=== PATIENT | male | born 1940 | race Caucasian/White ===

== ENCOUNTER 2019-08-21 14:26 | Inpatient (IN) | payer MEDICARE, MEDICAID, SELFPAY ==
[2019-08-21] VITALS (10 sets, daily range): BP systolic 83–139; BP diastolic 46–66; PULSE 71–95; RESP 14–28; TEMP 35.4–36.7; O2SAT 97–100; BMI 23.7
--- NOTE | ~2019-08-21 | CT_ITS ---
EXAMINATION: CT brain wo con DATE: 08/21/2019 16:02 INDICATION: Altered mental status. TECHNIQUE: Computed tomography (CT) of the head was performed without intravenous contrast. The mA wa s adjusted according to patient size. Iterative reconstruction technique was employed. The dose-lengt h product was 605.33 mGy-cm. COMPARISON: None FINDINGS: There are scattered areas of low attenuation in the cerebral white matter and deep james nuc lei. There is an old infarct in right frontoparietal region. There are old infarcts in the bilateral basal ganglia and left frontal lobe gamboa radiata. There is an old infarct in right cerebellum. Ther e are old infarcts in the bilateral parietal lobes. There is no intracranial hemorrhage, acute infarc tion, or abnormal intracranial mass lesion. The ventricles are normal in size. There is mild mucosal thickening in right maxillary sinus. The mastoid air cells are normal. There are likely changes of oc ular lens replacement surgeries. IMPRESSION: 1. Multiple old infarcts in the brain. 2. Moderate nonspecific cerebral white matter disease and disease of the deep james nuclei, which like ly represents chronic small vessel ischemic disease. Reviewed, dictated and finalized at location A. IMPRESSION: 1. Multiple old infarcts in the brain. 2. Moderate nonspecific cerebral white matter disease and disease of the deep g ray nuclei, which likely represents chronic small vessel ischemic disease.
--- NOTE | ~2019-08-21 | US_ITS ---
EXAMINATION: US renal BI DATE: 08/22/2019 13:11 INDICATION: Acute kidney injury TECHNIQUE: Multiple grayscale and Doppler ultrasound images of the kidneys were obtained. COMPARISON: None. FINDINGS: The right kidney measures 8.7 x 4.9 x 4.9 cm. The left kidney measures 9.5 x 5.5 x 4.0 cm. The kidneys demonstrate normal parenchymal echogenicity. There is no hydronephrosis. The bladder is d ecompressed by a Carver catheter. IMPRESSION: 1. Normal kidneys without hydronephrosis. Reviewed, dictated and finalized at location B.
--- NOTE | ~2019-08-21 | US_ITS ---
EXAMINATION: US right upper quadrant DATE: 08/22/2019 13:12 INDICATION: Right upper quadrant pain TECHNIQUE: Multiple grayscale and Doppler ultrasound images of the abdomen were obtained. COMPARISON: None available FINDINGS: Bowel gas obscures visualization of the pancreas. The visualized portions of the pancreas a re unremarkable. The liver is normal with normal echogenicity and echotexture. No surface nodularity. Normal hepatopetal flow in the main portal vein. There are stones and sludge in the gallbladder. No gallbladder wall thickening or pericholecystic fluid are identified. The normal common bile duct familia ures 5 mm. There was no sonographic Woodward sign. IMPRESSION: 1. Gallbladder sludge and cholelithiasis without additional findings of cholecystitis. Reviewed, dictated and finalized at location B. IMPRESSION: 1. Gallbladder sludge and cholelithiasis without additional findings of cholecy stitis.
--- NOTE | ~2019-08-21 | XR_ITS ---
EXAMINATION: XR chest 1V DATE: 08/21/2019 16:08 INDICATION: Altered mental status. TECHNIQUE: A single frontal view of the chest was obtained. COMPARISON: None. FINDINGS: There is mild scarring at the lung apices. No pleural effusion or pneumothorax. The heart s ize is normal. There are prominent paracardial fat pads. IMPRESSION: 1. Mild scarring at the lung apices. Reviewed, dictated and finalized at location A.
--- NOTE | 2019-08-21 14:48 | PC.NURSE ---
This RN called [facility]. They state his haywood was last changed on 08/08/19. I asked when haywood care was last given. She states he should have haywood care every day. I told her based on the appearance of his penis and haywood he has not had care in a while. They also state he had the bruises on his knees at his admission on 08/07
--- NOTE | 2019-08-21 14:56 | ED.AMS ---
HPI - Altered Mental Status General Chief Complaint: Altered Mental Status Stated Complaint: AMS Time Seen by Provider: 08/21/19 14:30 Source: EMS, RN notes reviewed, old records reviewed and other (PCP, [facility] notes) Mode of arrival: EMS Limitations: altered mental status History of Present Illness HPI narrative: Pt is 79 y/o male, with a H/O a CVA, who presents to the ED, via EMS, from [facility] with c/o AMS. Per EMS, they were called to the [facility] d/t the pt having increased AMS. Pt is normally non-verbal, but he has been more lethargic. Per ED nurse, pt had a Carver Catheter that was placed by [facility] staff on 08/09/19 that showed skin breakdown to the tip of his penis with minimal urine output in the Carver bag. Pt was admitted to the [facility] on 08/08/19. Per [facility] records, pt is taking Eliquis and Oxycodone. Per records, pt is supposed to be getting a G-tube placed. A complete HPI is limited d/t pt's AMS. MD complaint: altered mental status Onset (ago): unknown Related Data Allergies Allergy/AdvReac Type Severity Reaction Status Date / Time aspirin Allergy Unknown Verified 08/21/19 15:18 latex Allergy Unknown Verified 08/21/19 15:19 Review of Systems Review of Systems: ROS unobtainable: unobtainable due to mental status PMFSH Past Medical History Medical History (Updated 08/21/19 @ 18:03 by Vik Rausch MD) Aphasia Bipolar 1 disorder CVA (cerebral vascular accident) Recent left MCA stroke with resultant aphasia, dysphagia, and hemiplegia. Dementia Hypertension Idiopathic peripheral neuropathy Insomnia PTSD (post-traumatic stress disorder) Secondary polycythemia Urinary retention : With indwelling Carver catheter. Surgical History Surgical History (Updated 08/21/19 @ 15:22 by Neli Olmos) No significant past surgical history Social History Social History (Updated 08/21/19 @ 17:44 by Lizabeth Justin PA-C) Social History: The patient lives in [place] with his . He is currently at [facility] since his recent stroke. He is retired from the [employer]. He has a history of alcohol abuse his , Liana, is his healthcare power of consumer attorney and he is listed as a full code. Exam Const: General: no acute distress and well developed Orientation/consciousness: Other orientation findings (nonverbal, does not follow commands) Limitations: no limitations HENMT: Head: normocephalic and atraumatic Ears: external ears normal General nose exam: No nasal discharge present and no epistaxis Face and sinus: face symmetric Mouth: Yes lip normal, Yes tongue normal and Yes dry mucous membranes Eyes: Conjunctivae: conjunctivae normal Sclera: sclerae normal Resp: Effort & Inspection: normal respiratory effort Auscultation: clear to auscultation bilaterally, no rales, no rhonchi, no wheezes and other (breath sounds equal) Cardio: Rate: regular rate Rhythm: regular rhythm Heart sounds: no gallops and no murmurs GI: Inspection: non-distended GI Palp: Yes Soft to palpation Auscultation: other (bowel sounds present) Urinary Catheter: Urinary Catheter: other (skin breakdown by meatus per nurse report) Back/Spine/Pelvis: Thoracic/Lumbar Spine: thoracic and lumbar spine normal to inspection Skin: General skin exam: normal color and no rashes or lesions noted Neuro: General: other (does not follow commands) Cranial nerves: Yes facial symmetry Speech: Other speech findings present (Neuro) (nonverbal) Extrem: General: no pedal edema and other (bruising to YANCI knees) Course Consultations Consultation #1: Discussed case with Dr. Harris, pt's PCP at the [facility]. She was able to find out that he was sent to [facility] from the rehab institute of [facility] but unaware of how long he was in the rehab institute. She states that the pt was supposed to be evaluated for a G-tube placement d/t the pt having trouble swallowing. BP's improved w/hydration covered for sepsis/infxm though more likely is profou
--- NOTE | 2019-08-21 15:35 | ECG_ITS ---
Measurements Intervals [place] Rate: 92 P: 69 MT: 122 QRS: 25 QRSD: 89 T: 78 QT: 353 QTc: 437 Interpretive Statements SINUS RHYTHM DELAYED PRECORDIAL R/S TRANSITION BORDERLINE ST-T WAVE ABNORMALITY- LATERAL LEADS BORDERLINE ECG Electronically Signed On 08-21-2019 16:08:26 CDT by Jian Rivas D.O.
[2019-08-21 15:39] LABS: Basophils Percent Auto 0.2 % (0.2-1.2); Hematocrit 64.9 % (42.0-52.0); Hemoglobin 20.1 g/dL (14.0-18.0); Immature Granulocyte Absolute 0.09 K/mm3 (0.00-0.031); Immature Granulocyte Percent A 0.5 % (0-0.5); Lymphocytes Absolute Auto 0.49 K/mm3 (0.9-3.2); Lymphocytes Percent Auto 2.7 % (18.3-44.2); Mean Corpuscular Volume 106.6 fl (80-100); Mean Platelet Volume 12.6 fl (7.4-10.4); Monocytes Absolute Auto 0.7 K/mm3 (0.1-0.6); Monocytes Percent Auto 3.6 % (2.6-8.5); Neutrophils Absolute Auto 16.8 K/mm3 (1.3-6.7); Platelet Count Result 220 k/mm3 (150-375); Red Blood Count 6.09 M/mm3 (4.6-6.20); Red Cell Distribution Width 15.4 % (11.5-14.5); White Blood Count 18.1 K/mm3 (4.5-10.0)
[2019-08-21] MEDS: LACTATED RINGERS 1,000 ML 999 ML IV CONT ×3 (15:42→16:58)
--- NOTE | 2019-08-21 15:43 | PC.NURSE ---
Pt. IV access attempted by multiple RNs with no success, IV Ultrasound RN notified to come start IV access for Pt.
[2019-08-21 15:47] LABS: Glucose Point of Care 145 (65-105)
[2019-08-21 16:01] LABS: Alanine Aminotransferase 73 U/L (4-50); Albumin Level 4.5 g/dL (3.5-5.1); Alkaline Phosphatase 150 U/L (38-126); Aspartate Amino Transferase 103 U/L (17-59); Bilirubin,Total 0.8 mg/dL (0.2-1.3); Calcium 9.7 mg/dL (8.4-10.2); Carbon Dioxide 19 mmol/L (22-30); Chloride 130 mmol/L (98-107); Glucose 158 mg/dL (75-110); Potassium 5.3 mmol/L (3.4-5.0); Sodium 168 mmol/L (137-145)
[2019-08-21 16:02] LABS: Lactic Acid Reflex 4.5 mmol/L (0.7-2.1)
[2019-08-21 16:44] LABS: Blood Urea Nitrogen 193 mg/dL (9-20)
[2019-08-21 16:45] LABS: Estimated Glomerular Filt Rate 11
--- NOTE | 2019-08-21 18:06 | ADMGEN ---
This patient, Eric De La Rosa, was admitted to IMU Room 202-01. Patient/family oriented to hospital policies and general routines including ID bracelet, bed and alarms, visiting hours, pain management, procedures, bathroom and other care routines, personal items, smoking policy, room service/diet, and visiting hours. Valuables list has been completed. Information on how to activate the Rapid Response Team has been discussed. Patient/Family are encouraged to report perceived risks to care and to ask questions if they do not understand what they are told or what they should do.
[2019-08-21 18:19] LABS: Add Urine Microscopic? YES; Appearance Urine Cloudy (Clear); Bilirubin Urine Negative (Negative); Blood Urine 3+ (Negative); Color Urine Yellow (Yellow); Glucose Urine UA Negative (Negative); Hyaline Casts Urine 15-19 /lpf; Ketones Urine Negative (Negative); Leukocyte Esterase Ur 2+ LEU/UL (Negative); Mucus Urine Few /lpf; Nitrate Urine Negative (Negative); Protein Urine 2+ mg/dL (Negative); RBC Urine >75 /hpf (0-2); Specific Grav Ur 1.015 (1.001-1.035); Squamous Epithelial Cell Urine Rare /hpf (Few); Urobilinogen Urine Negative mg/dL (<2.0); WBC Urine >75 /hpf
[2019-08-21 18:33] LABS: Base Excess ABG -4.2 mEq/l (+/-2.0); Carboxyhemoglobin 0.3 % THb (0-2.0); Fractional Inspired Oxygen 21 %; HCO3 ABG 19.5 mEq/l (22.0-26.0); Methemoglobin ABG 0.6 %THb (0-1.5); Oxygen Content ABG 23.2 %vol (16.0-22.0); Oxyhemoglobin 94.2 % THb (90.0-100.0); PCO2 ABG 32.5 mmHg (35.0-45.0); PO2 ABG 80.8 mmHg (80.0-100.0); PO2 FiO2 Ratio Arterial Blood 3.85 %; Reduced Hemoglobin 4.9 %THb (0-5.0); Site Drawn RIGHT RADIAL; Total Hemoglobin 17.5 g/dL (12.0-18.0); pH ABG 7.395 (7.350-7.450)
[2019-08-21] MEDS: LACTATED RINGERS 1,000 ML 200 ML IV CONT (18:33)
[2019-08-21 18:34] LABS: Device ROOM AIR; Modified Allen's Test Pass
[2019-08-21 18:37] LABS: Reflex Lactic Acid Yes or No Add Lactic
--- NOTE | 2019-08-21 19:30 | PM.IMHP ---
H&P: HPI History of Present Illness Chief complaint: Altered mental status. Narrative: Eric De La Rosa is an unfortunate 79-year-old male with recent CVA with resultant hemiplegia, aphasia, and dysphagia who presented to the emergency department earlier today from [facility] for evaluation of altered mental status. Given his aphasia and confusion, he is unable to provide a reliable history. As such, a majority of this medical history is obtained via a review of his electronic medical records. He had never been seen at this facility before prior to today, and appears that he lives in [place]. He was admitted to [facility] on August 08, 2019 after being hospitalized at [facility] with left MCA stroke. Reportedly today he was more ?lethargic? than usual and was brought in for evaluation. On arrival to the emergency department he was hypotensive and was found to be in acute renal failure with profound dehydration. At the time my evaluation he is unresponsive. He will open his eyes but does not track and will not follow commands nor answer questions. I have a call out to the patient's for further information, and records have been requested from [facility] for review. Review of Systems Review of Systems: Narrative: Unobtainable due to current clinical condition as detailed above. [facility] Past Medical History Medical History (Updated 08/21/19 @ 21:01 by Lizabeth Justin PA-C) Aphasia Bipolar 1 disorder CVA (cerebral vascular accident) Recent left MCA stroke with resultant aphasia, dysphagia, and hemiplegia. Dementia Hypertension Idiopathic peripheral neuropathy Insomnia PTSD (post-traumatic stress disorder) Secondary polycythemia Urinary retention With indwelling Carver catheter. Surgical History Surgical History (Updated 08/21/19 @ 20:41 by Lizabeth Justin PA-C) History of cataract removal with insertion of prosthetic lens Social History Social History (Updated 08/21/19 @ 17:44 by Lizabeth Justin PA-C) Social History: The patient lives in [place] with his . He is currently at [facility] since his recent stroke. He is retired from the railroad. He has a history of alcohol abuse his , Liana, is his healthcare power of strand forming machine operator and he is listed as a full code. Smoking status: Former smoker Alcohol intake: unknown Substance use: unknown Gender identity (if verbalized by the patient): Male Spiritual care concerns: No Agree to blood products: Yes Meds Home Medications and Allergies Home Medications Medication Instructions Recorded Confirmed Type acetaminophen 650 mg PO TID PRN 08/21/19 08/21/19 History apixaban [Eliquis] 5 mg PO BID 08/21/19 08/21/19 History atorvastatin 40 mg PO DAILY 08/21/19 08/21/19 History bisacodyl 10 mg PO HS 08/21/19 08/21/19 History bisacodyl 10 mg DE DAILY PRN 08/21/19 08/21/19 History clopidogrel 75 mg PO DAILY 08/21/19 08/21/19 History hydroxyzine HCl 25 mg PO TID PRN 08/21/19 08/21/19 History latanoprost 1 drp OPHTHALMIC (EYE) HS 08/21/19 08/21/19 History nystatin 5 ml PO QID 08/21/19 08/21/19 History oseltamivir 75 mg PO DAILY 08/21/19 08/21/19 History oxycodone 5 mg PO Q6H PRN 08/21/19 08/21/19 History polyethylene glycol 3350 [Miralax] 17 g PO DAILY 08/21/19 08/21/19 History sennosides-docusate sodium [Senna 2 tablet PO BID 08/21/19 08/21/19 History with Docusate Sodium] thiamine HCl (vitamin B1) 100 mg PO DAILY 08/21/19 08/21/19 History trazodone 50 mg PO HS 08/21/19 08/21/19 History Allergies Allergy/AdvReac Type Severity Reaction Status Date / Time aspirin Allergy Unknown Verified 08/21/19 15:18 latex Allergy Unknown Verified 08/21/19 15:19 Vital Signs Vital Signs - 24 hr 08/21/19 14:29 08/21/19 14:30 08/21/19 15:43 Temperature 95.8 F L 98.1 F Pulse Rate 95 88 Respiratory Rate 28 H 26 H 28 H Blood Pressure 83/66 L 89/59 L Pulse Oximetry 99 99 97
[2019-08-21 19:42] LABS: Hematocrit 55.1 % (42.0-52.0)
[2019-08-21 19:56] LABS: Lactic Acid 2.1 mmol/L (0.7-2.1); Magnesium 3.9 mg/dL (1.6-2.3); Phosphorus 6.8 mg/dL (2.5-4.5)
[2019-08-21 20:02] LABS: Calcium 8.4 mg/dL (8.4-10.2); Carbon Dioxide 23 mmol/L (22-30); Chloride 128 mmol/L (98-107); Creatine Kinase 1529 U/L (55-170); Estimated CRCL calculation 13 ml/min; Estimated Glomerular Filt Rate 15; Glucose 132 mg/dL (75-110); INR 4.5; Partial Thromboplastin Time 35.4 SECONDS (22.3-36.8); Potassium 4.7 mmol/L (3.4-5.0); Prothrombin Time 41.9 Seconds (11.1-14.7); Sodium 162 mmol/L (137-145)
[2019-08-21 20:09] LABS: Blood Urea Nitrogen 168 mg/dL (9-20)
[2019-08-21 20:27] LABS: Hepatitis B Surface Antigen Negative (Negative)
[2019-08-21 20:33] LABS: HAV RESULT Negative (Negative); Hepatitis B Core IgM Result Negative (Negative)
[2019-08-21 20:45] LABS: Hepatitis C Virus Antibody Negative (Negative)
[2019-08-21 20:48] LABS: Thyroid Stimulating Hormone Reflex 0.569 uIU/mL (0.465-4.68)
[2019-08-21 21:01] LABS: Folic Acid 12.3 ng/mL (2.76->20)
[2019-08-21] MEDS: NYSTATIN 100,000 UNITS/ML SUSP 5 ML ORAL.SUSP PO (22:56)
[2019-08-21] MEDS: LATANOPROST 0.005% OP SOLN 2.5 ML BTL 1 DROP EACH EYE (22:57)
[2019-08-21] MEDS: SODIUM CHLORIDE 0.9% IV 1,000 ML 100 ML IV CONT (23:00)
[2019-08-22] VITALS (15 sets, daily range): BP systolic 101–127; BP diastolic 42–61; PULSE 70–88; RESP 18–20; TEMP 36.6–37.2; O2SAT 97–98
[2019-08-22 01:10] LABS: Sodium 160 mmol/L (137-145)
[2019-08-22 05:34] LABS: Basophils Percent Auto 0.1 % (0.2-1.2); Eosinophils Percent Auto 0.1 % (0-4.4); Hematocrit 54.2 % (42.0-52.0); Hemoglobin 16.9 g/dL (14.0-18.0); Immature Granulocyte Absolute 0.34 K/mm3 (0.00-0.031); Immature Platelet Fraction Pct 5.3 % (0.9-11.2); Lymphocytes Percent Auto 5.2 % (18.3-44.2); Mean Corpuscular HGB Conc 31.2 g/dl (32-36); Mean Corpuscular Hemoglobin 33.2 pg (26-34); Mean Corpuscular Volume 106.5 fl (80-100); Mean Platelet Volume 13.1 fl (7.4-10.4); Monocytes Absolute Auto 1.1 K/mm3 (0.1-0.6); Monocytes Percent Auto 6.1 % (2.6-8.5); Neutrophils Absolute Auto 15.1 K/mm3 (1.3-6.7); Neutrophils Percent Auto 86.5 % (45.5-73.1); Platelet Count Result 152 k/mm3 (150-375); Red Blood Count 5.09 M/mm3 (4.6-6.20); Red Cell Distribution Width 15.2 % (11.5-14.5); White Blood Count 17.4 K/mm3 (4.5-10.0)
[2019-08-22 05:40] LABS: INR 4.6; Prothrombin Time 42.6 Seconds (11.1-14.7)
[2019-08-22 05:56] LABS: Alanine Aminotransferase 54 U/L (4-50); Albumin Level 3.2 g/dL (3.5-5.1); Alkaline Phosphatase 106 U/L (38-126); Aspartate Amino Transferase 87 U/L (17-59); Bilirubin,Total 0.5 mg/dL (0.2-1.3); Blood Urea Nitrogen > 120 mg/dL (9-20); Calcium 8.5 mg/dL (8.4-10.2); Carbon Dioxide 22 mmol/L (22-30); Chloride 133 mmol/L (98-107); Estimated CRCL calculation 17 ml/min; Estimated Glomerular Filt Rate 21; Glucose 138 mg/dL (75-110); Potassium 4.5 mmol/L (3.4-5.0); Sodium 161 mmol/L (137-145)
[2019-08-22] MEDS: SODIUM CHLORIDE 0.45% 1,000 ML 100 ML IV CONT ×2 (08:30→23:37)
[2019-08-22] MEDS: NYSTATIN 100,000 UNITS/ML SUSP 5 ML ORAL.SUSP PO ×4 (09:26→20:25)
[2019-08-22 10:43] LABS: Sodium 160 mmol/L (137-145)
--- NOTE | 2019-08-22 12:37 | P.PNIM_ITS ---
Progress Note: A&P Assessment and Plan (1) Metabolic encephalopathy: Code(s): G93.41 - Metabolic encephalopathy Status: Acute Assessment and Plan: * Secondary to acute kidney injury, electrolyte abnormalities, and profound uremia. * Cannot rule out underlying infection, UA pending at this time. * Patient is NPO. Will need to discuss with regarding possible G-tube placement. Once has improved metabolically (2) Dehydration: Code(s): E86.0 - Dehydration Status: Acute Assessment and Plan: * Patient is profoundly dehydrated with a sodium level of 168, BUN 193, and a creatinine of 5.60. * Also significantly hemoconcentrated with a hemoglobin and hematocrit of 21.9 and 64.9% respectively. * He is receiving aggressive IV fluid rehydration with close monitoring of his electrolytes and renal function. * And change to half-normal saline with hypernatremia and hyperchhoremia (3) Lactic acidosis: Code(s): E87.2 - Acidosis Status: Acute Assessment and Plan: * Lactic acid may very well be elevated due to hypoperfusion from significant hypovolemia. * Will obtain blood cultures and urine cultures pending * He recieved 30 milligrams/kilogram IV fluid rehydration, and repeat lactic acid normal (4) Hypotension: Code(s): I95.9 - Hypotension, unspecified Status: Acute Assessment and Plan: * Likely due to profound dehydration. * Blood pressures have improved with IV fluids. * Will hold antihypertensives and monitor blood pressures closely. (5) Hypernatremia: Code(s): E87.0 - Hyperosmolality and hypernatremia Status: Acute Assessment and Plan: * Profound hypernatremia with a sodium of 168 on arrival to the emergency department. * He he received IV fluid boluses for lactic acidosis, we will repeat sodium this evening. * Sodium level will be monitored q.3 hours to ensure it is correcting at an appropriate level. * Na 160 this am , upper limit of correction per day (6) Transaminasemia: Code(s): R74.0 - Nonspecific elevation of levels of transaminase and lactic acid dehydrogenase [LDH] Status: Acute Assessment and Plan: * Possibly due to hypoperfusion, but will ask for records to see if he has a history of elevated LFTs. * Hepatitis panel negative and CK levels increased. Follow both * Right upper quadrant ultrasound today * Continue to monitor closely. (7) Acute kidney injury: Code(s): N17.9 - Acute kidney failure, unspecified Status: Acute Assessment and Plan: * Most likely due to profound dehydration. * I will review his home medications to see if they may be playing a role as well. * As above, he is receiving aggressive IV fluid rehydration. * Carver catheter in place to monitor strict I/O. * Avoid nephrotoxic agents. * Renal ultrasound in a.m. * Nephrology consult if no improvement with above. (8) Secondary polycythemia: Code(s): D75.1 - Secondary polycythemia Status: Acute Assessment and Plan: * This diagnosis was documented on paperwork that accompanied him from [facility], and I have no further information. * At this time he is significantly hemoconcentrated with hemoglobin and hematocrit as above. * Will monitor closely while hydrating, and consider therapeutic phlebotomy if needed, when blood pressure improves. (9) Coagulopathy: Code(s): D68.9 - Coagulation defect,
--- NOTE | 2019-08-22 12:37 | PM.IMPN ---
Progress Note: A&P Assessment and Plan (1) Metabolic encephalopathy: Code(s): G93.41 - Metabolic encephalopathy Status: Acute Assessment and Plan: Secondary to acute kidney injury, electrolyte abnormalities, and profound uremia. Cannot rule out underlying infection, UA pending at this time. Patient is NPO. Will need to discuss with regarding possible G-tube placement. Once has improved metabolically (2) Dehydration: Code(s): E86.0 - Dehydration Status: Acute Assessment and Plan: Patient is profoundly dehydrated with a sodium level of 168, BUN 193, and a creatinine of 5.60. Also significantly hemoconcentrated with a hemoglobin and hematocrit of 21.9 and 64.9% respectively. He is receiving aggressive IV fluid rehydration with close monitoring of his electrolytes and renal function. And change to half-normal saline with hypernatremia and hyperchhoremia (3) Lactic acidosis: Code(s): E87.2 - Acidosis Status: Acute Assessment and Plan: Lactic acid may very well be elevated due to hypoperfusion from significant hypovolemia. Will obtain blood cultures and urine cultures pending He recieved 30 milligrams/kilogram IV fluid rehydration, and repeat lactic acid normal (4) Hypotension: Code(s): I95.9 - Hypotension, unspecified Status: Acute Assessment and Plan: Likely due to profound dehydration. Blood pressures have improved with IV fluids. Will hold antihypertensives and monitor blood pressures closely. (5) Hypernatremia: Code(s): E87.0 - Hyperosmolality and hypernatremia Status: Acute Assessment and Plan: Profound hypernatremia with a sodium of 168 on arrival to the emergency department. He he received IV fluid boluses for lactic acidosis, we will repeat sodium this evening. Sodium level will be monitored q.3 hours to ensure it is correcting at an appropriate level. Na 160 this am , upper limit of correction per day (6) Transaminasemia: Code(s): R74.0 - Nonspecific elevation of levels of transaminase and lactic acid dehydrogenase [LDH] Status: Acute Assessment and Plan: Possibly due to hypoperfusion, but will ask for records to see if he has a history of elevated LFTs. Hepatitis panel negative and CK levels increased. Follow both Right upper quadrant ultrasound today Continue to monitor closely. (7) Acute kidney injury: Code(s): N17.9 - Acute kidney failure, unspecified Status: Acute Assessment and Plan: Most likely due to profound dehydration. I will review his home medications to see if they may be playing a role as well. As above, he is receiving aggressive IV fluid rehydration. Carver catheter in place to monitor strict I/O. Avoid nephrotoxic agents. Renal ultrasound in a.m. Nephrology consult if no improvement with above. (8) Secondary polycythemia: Code(s): D75.1 - Secondary polycythemia Status: Acute Assessment and Plan: This diagnosis was documented on paperwork that accompanied him from [facility], and I have no further information. At this time he is significantly hemoconcentrated with hemoglobin and hematocrit as above. Will monitor closely while hydrating, and consider therapeutic phlebotomy if needed, when blood pressure improves. (9) Coagulopathy: Code(s): D68.9 - Coagulation defect, unspecified Status: Acute Assessment and Plan: He is on apixaban, which is being held. Will continue to monitor INR. (10) Recent cerebrovascular accident (CVA): Code(s): Z86.73 - Personal history of transient ischemic attack (TIA), and cerebral infarction without residual deficits Status: Acute Assessment and Plan: Recent CVA, left MCA, with right hemiplegia, aphasia, and dysphagia. All medications are on hold as he is NPO given altered mental status. Will ho
[2019-08-22 14:12] LABS: Sodium 162 mmol/L (137-145)
[2019-08-22 18:10] LABS: Albumin Level 3.2 g/dL (3.5-5.1); Carbon Dioxide 22 mmol/L (22-30); Chloride 136 mmol/L (98-107); Estimated CRCL calculation 18 ml/min; Estimated Glomerular Filt Rate 23; Glucose 113 mg/dL (75-110); Phosphorus 4.9 mg/dL (2.5-4.5); Potassium 4.9 mmol/L (3.4-5.0); Sodium 164 mmol/L (137-145)
[2019-08-22 18:20] LABS: Blood Urea Nitrogen 152 mg/dL (9-20)
[2019-08-22] MEDS: LATANOPROST 0.005% OP SOLN 2.5 ML BTL 1 DROP EACH EYE (20:29)
[2019-08-22 21:27] LABS: Sodium 165 mmol/L (137-145)
[2019-08-22 21:44] LABS: Creatine Kinase 4150 U/L (55-170)
[2019-08-23] VITALS (15 sets, daily range): BP systolic 114–154; BP diastolic 47–69; PULSE 67–88; RESP 18–24; TEMP 36.6–36.8; O2SAT 95–98
[2019-08-23 05:10] LABS: INR 4.9; Prothrombin Time 44.9 Seconds (11.1-14.7)
[2019-08-23 05:13] LABS: Basophils Percent Auto 0.1 % (0.2-1.2); Eosinophils Percent Auto 0.3 % (0-4.4); Hematocrit 49.1 % (42.0-52.0); Immature Granulocyte Absolute 0.09 K/mm3 (0.00-0.031); Immature Granulocyte Percent A 0.6 % (0-0.5); Immature Platelet Fraction Pct 5.6 % (0.9-11.2); Lymphocytes Absolute Auto 0.92 K/mm3 (0.9-3.2); Lymphocytes Percent Auto 6.6 % (18.3-44.2); Mean Corpuscular HGB Conc 30.5 g/dl (32-36); Mean Corpuscular Hemoglobin 33.2 pg (26-34); Mean Corpuscular Volume 108.6 fl (80-100); Monocytes Absolute Auto 0.8 K/mm3 (0.1-0.6); Neutrophils Percent Auto 86.4 % (45.5-73.1); Platelet Count Result 121 k/mm3 (150-375); Red Blood Count 4.52 M/mm3 (4.6-6.20); White Blood Count 13.9 K/mm3 (4.5-10.0)
[2019-08-23 05:40] LABS: Alanine Aminotransferase 61 U/L (4-50); Albumin Level 3.1 g/dL (3.5-5.1); Alkaline Phosphatase 102 U/L (38-126); Aspartate Amino Transferase 155 U/L (17-59); Bilirubin,Total 0.5 mg/dL (0.2-1.3); Blood Urea Nitrogen > 120 mg/dL (9-20); Calcium 8.1 mg/dL (8.4-10.2); Carbon Dioxide 22 mmol/L (22-30); Chloride 138 mmol/L (98-107); Estimated CRCL calculation 20 ml/min; Estimated Glomerular Filt Rate 25; Glucose 100 mg/dL (75-110); Potassium 4.1 mmol/L (3.4-5.0); Sodium 166 mmol/L (137-145)
[2019-08-23] MEDS: DEXTROSE 5% 1,000 ML 1,000 ML 100 ML IV CONT ×2 (06:09→18:39)
[2019-08-23 06:32] LABS: Creatine Kinase 5255 U/L (55-170)
[2019-08-23] MEDS: NYSTATIN 100,000 UNITS/ML SUSP 5 ML ORAL.SUSP PO ×3 (09:50→21:49)
--- NOTE | 2019-08-23 14:05 | P.PNIM_ITS ---
Progress Note: A&P Assessment and Plan (1) Metabolic encephalopathy: Code(s): G93.41 - Metabolic encephalopathy Status: Acute Assessment and Plan: * Secondary to acute kidney injury, electrolyte abnormalities, and profound uremia. * Infection in initial differential but cultures blood and urine negative so far. * Patient is NPO. Will need to discuss with regarding possible G-tube placement. Once has improved metabolically (2) Dehydration: Code(s): E86.0 - Dehydration Status: Acute Assessment and Plan: * Patient is profoundly dehydrated with a sodium level still 164, BUN >120, and a creatinine of 2.5 all improved but still significally elevated. * Also significantly hemoconcentrated . * He is receiving aggressive IV fluid rehydration with close monitoring of his electrolytes and renal function. * And change to D5W with persistant hypernatremia and hyperchhoremia, cover with thiamine (3) Lactic acidosis: Code(s): E87.2 - Acidosis Status: Acute Assessment and Plan: * Lactic acid may very well be elevated due to hypoperfusion from significant hypovolemia. * blood cultures and urine cultures negative so far * He recieved 30 milligrams/kilogram IV fluid rehydration, and repeat lactic acid normal (4) Hypotension: Code(s): I95.9 - Hypotension, unspecified Status: Acute Assessment and Plan: * Likely due to profound dehydration. * Blood pressures have improved with IV fluids. * Will hold antihypertensives and monitor blood pressures closely. (5) Hypernatremia: Code(s): E87.0 - Hyperosmolality and hypernatremia Status: Acute Assessment and Plan: * Profound hypernatremia with a sodium of 168 on arrival to the emergency department. * He he received IV fluid boluses for lactic acidosis, we will repeat sodium this evening. * Sodium level will be monitored to ensure it is correcting at an appropriate level. * Na 164 today so converted to D5W hydration (6) Transaminasemia: Code(s): R74.0 - Nonspecific elevation of levels of transaminase and lactic acid dehydrogenase [LDH] Status: Acute Assessment and Plan: * Possibly due to hypoperfusion, but will ask for records to see if he has a history of elevated LFTs. * Hepatitis panel negative and CK levels increased. Follow both * Right upper quadrant ultrasound sludge and stones but no evidence of acute cholecystitis * Continue to monitor closely. (7) Acute kidney injury: Code(s): N17.9 - Acute kidney failure, unspecified Status: Acute Assessment and Plan: * Most likely due to profound dehydration. * As above, he is receiving aggressive IV fluid rehydration. * Carver catheter in place to monitor strict I/O. * Avoid nephrotoxic agents. * Renal ultrasound no hydro * CK elevated too. continue hydration (8) Secondary polycythemia: Code(s): D75.1 - Secondary polycythemia Status: Acute Assessment and Plan: * This diagnosis was documented on paperwork that accompanied him from [facility], and I have no further information. * At this time he is significantly hemoconcentrated with hemoglobin and hematocrit as above. * Will monitor closely while hydrating, * Has fallen slowly and platelet 122K today (9) Coagulopathy: Code(s): D68.9 - Coagulation defect, unspecified Status: Acute Assessment and Plan:
--- NOTE | 2019-08-23 14:05 | PM.IMPN ---
Progress Note: A&P Assessment and Plan (1) Metabolic encephalopathy: Code(s): G93.41 - Metabolic encephalopathy Status: Acute Assessment and Plan: Secondary to acute kidney injury, electrolyte abnormalities, and profound uremia. Infection in initial differential but cultures blood and urine negative so far. Patient is NPO. Will need to discuss with regarding possible G-tube placement. Once has improved metabolically (2) Dehydration: Code(s): E86.0 - Dehydration Status: Acute Assessment and Plan: Patient is profoundly dehydrated with a sodium level still 164, BUN >120, and a creatinine of 2.5 all improved but still significally elevated. Also significantly hemoconcentrated . He is receiving aggressive IV fluid rehydration with close monitoring of his electrolytes and renal function. And change to D5W with persistant hypernatremia and hyperchhoremia, cover with thiamine (3) Lactic acidosis: Code(s): E87.2 - Acidosis Status: Acute Assessment and Plan: Lactic acid may very well be elevated due to hypoperfusion from significant hypovolemia. blood cultures and urine cultures negative so far He recieved 30 milligrams/kilogram IV fluid rehydration, and repeat lactic acid normal (4) Hypotension: Code(s): I95.9 - Hypotension, unspecified Status: Acute Assessment and Plan: Likely due to profound dehydration. Blood pressures have improved with IV fluids. Will hold antihypertensives and monitor blood pressures closely. (5) Hypernatremia: Code(s): E87.0 - Hyperosmolality and hypernatremia Status: Acute Assessment and Plan: Profound hypernatremia with a sodium of 168 on arrival to the emergency department. He he received IV fluid boluses for lactic acidosis, we will repeat sodium this evening. Sodium level will be monitored to ensure it is correcting at an appropriate level. Na 164 today so converted to D5W hydration (6) Transaminasemia: Code(s): R74.0 - Nonspecific elevation of levels of transaminase and lactic acid dehydrogenase [LDH] Status: Acute Assessment and Plan: Possibly due to hypoperfusion, but will ask for records to see if he has a history of elevated LFTs. Hepatitis panel negative and CK levels increased. Follow both Right upper quadrant ultrasound sludge and stones but no evidence of acute cholecystitis Continue to monitor closely. (7) Acute kidney injury: Code(s): N17.9 - Acute kidney failure, unspecified Status: Acute Assessment and Plan: Most likely due to profound dehydration. As above, he is receiving aggressive IV fluid rehydration. Carver catheter in place to monitor strict I/O. Avoid nephrotoxic agents. Renal ultrasound no hydro CK elevated too. continue hydration (8) Secondary polycythemia: Code(s): D75.1 - Secondary polycythemia Status: Acute Assessment and Plan: This diagnosis was documented on paperwork that accompanied him from [facility], and I have no further information. At this time he is significantly hemoconcentrated with hemoglobin and hematocrit as above. Will monitor closely while hydrating, Has fallen slowly and platelet 122K today (9) Coagulopathy: Code(s): D68.9 - Coagulation defect, unspecified Status: Acute Assessment and Plan: He is on apixaban, which is being held. INR.still 4.9 (10) Recent cerebrovascular accident (CVA): Code(s): Z86.73 - Personal history of transient ischemic attack (TIA), and cerebral infarction without residual deficits Status: Acute Assessment and Plan: Recent CVA, left MCA, with right hemiplegia, aphasia, and dysphagia. All medications are on hold as he is NPO given altered mental status. Will hold on aspirin suppositories for now, given profound uremia. PT/OT when more alert Sub
[2019-08-23] MEDS: THIAMINE HCL 200 MG/2 ML VIAL 100 MG IV PUSH (18:43)
[2019-08-23 20:45] LABS: Glucose Point of Care 126 (65-105)
[2019-08-23] MEDS: LATANOPROST 0.005% OP SOLN 2.5 ML BTL 1 DROP EACH EYE (21:49)
[2019-08-24] VITALS (12 sets, daily range): BP systolic 115–147; BP diastolic 53–69; PULSE 64–77; RESP 16–24; TEMP 36.1–36.8; O2SAT 94–98; BMI 23.6
[2019-08-24] MEDS: DEXTROSE 5% 1,000 ML 1,000 ML 100 ML IV CONT ×2 (03:27→13:52)
[2019-08-24 04:52] LABS: Basophils Percent Auto 0.1 % (0.2-1.2); Eosinophils Absolute Auto 0.1 K/mm3 (0-0.3); Eosinophils Percent Auto 0.7 % (0-4.4); Hematocrit 48.2 % (42.0-52.0); Hemoglobin 14.4 g/dL (14.0-18.0); Immature Granulocyte Absolute 0.06 K/mm3 (0.00-0.031); Immature Granulocyte Percent A 0.6 % (0-0.5); Immature Platelet Fraction Pct 5.6 % (0.9-11.2); Lymphocytes Absolute Auto 0.96 K/mm3 (0.9-3.2); Lymphocytes Percent Auto 8.8 % (18.3-44.2); Mean Corpuscular HGB Conc 29.9 g/dl (32-36); Mean Corpuscular Hemoglobin 32.6 pg (26-34); Mean Platelet Volume 13.4 fl (7.4-10.4); Monocytes Absolute Auto 0.6 K/mm3 (0.1-0.6); Monocytes Percent Auto 5.3 % (2.6-8.5); Neutrophils Absolute Auto 9.2 K/mm3 (1.3-6.7); Neutrophils Percent Auto 84.5 % (45.5-73.1); Nucleated Red Blood Cells Perc 0.2 % (0.0-0.2); Platelet Count Result 103 k/mm3 (150-375); Red Blood Count 4.42 M/mm3 (4.6-6.20); Red Cell Distribution Width 14.9 % (11.5-14.5); White Blood Count 10.9 K/mm3 (4.5-10.0)
[2019-08-24 05:04] LABS: INR 4.9; Prothrombin Time 45.4 Seconds (11.1-14.7)
[2019-08-24 05:10] LABS: Alanine Aminotransferase 106 U/L (4-50); Alkaline Phosphatase 103 U/L (38-126); Aspartate Amino Transferase 385 U/L (17-59); Bilirubin,Total 0.5 mg/dL (0.2-1.3); Blood Urea Nitrogen 93 mg/dL (9-20); Calcium 8.1 mg/dL (8.4-10.2); Carbon Dioxide 24 mmol/L (22-30); Chloride 133 mmol/L (98-107); Estimated CRCL calculation 23 ml/min; Estimated Glomerular Filt Rate 31; Glucose 141 mg/dL (75-110); Potassium 3.9 mmol/L (3.4-5.0); Sodium 162 mmol/L (137-145)
[2019-08-24 06:10] LABS: Creatine Kinase 12255 U/L (55-170)
[2019-08-24] MEDS: THIAMINE HCL 200 MG/2 ML VIAL 100 MG IV PUSH (08:42)
[2019-08-24] MEDS: NYSTATIN 100,000 UNITS/ML SUSP 5 ML ORAL.SUSP PO ×4 (08:43→21:45)
[2019-08-24 12:26] LABS: Glucose Point of Care 132 (65-105)
--- NOTE | 2019-08-24 12:51 | P.PNIM_ITS ---
Progress Note: A&P Assessment and Plan (1) Metabolic encephalopathy: Code(s): G93.41 - Metabolic encephalopathy Status: Acute Assessment and Plan: * Secondary to acute kidney injury, electrolyte abnormalities, and profound uremia. * Infection in initial differential but cultures blood and urine negative so far. * Patient is NPO. discussed with regarding possible G-tube placement and she wants to proceed when able. Once has improved metabolically (2) Dehydration: Code(s): E86.0 - Dehydration Status: Acute Assessment and Plan: * Patient is profoundly dehydrated with a sodium level still 162 BUN 93, and a creatinine of 2.1 all improved but still significally elevated. * Also significantly hemoconcentrated . * He is receiving aggressive IV fluid rehydration with close monitoring of his electrolytes and renal function. * And change to D5W , 3/24 pm with persistant hypernatremia and hyperchhoremia, cover with thiamine (3) Lactic acidosis: Code(s): E87.2 - Acidosis Status: Acute Assessment and Plan: * Lactic acid was elevated due to hypoperfusion from significant hypovolemia. * blood cultures and urine cultures negative so far * He recieved 30 milligrams/kilogram IV fluid rehydration, and repeat lactic acid normal (4) Hypotension: Code(s): I95.9 - Hypotension, unspecified Status: Acute Assessment and Plan: * due to profound dehydration. * Blood pressures have improved with IV fluids. * Will hold antihypertensives and monitor blood pressures closely. (5) Hypernatremia: Code(s): E87.0 - Hyperosmolality and hypernatremia Status: Acute Assessment and Plan: * Profound hypernatremia with a sodium of 168 on arrival to the emergency department. * He received IV fluid boluses for lactic acidosis and sodium slowly falling. * Sodium level will be monitored to ensure it is correcting at an appropriate level. * Na 162 today so converted to D5W hydration 324 pm (6) Transaminasemia: Code(s): R74.0 - Nonspecific elevation of levels of transaminase and lactic acid dehydrogenase [LDH] Status: Acute Assessment and Plan: * Possibly due to hypoperfusion, serology negative and sludge and stones on US * Hepatitis panel negative and CK levels increased. Follow both * Right upper quadrant ultrasound sludge and stones but no evidence of acute cholecystitis * Continue to monitor closely. (7) Acute kidney injury: Code(s): N17.9 - Acute kidney failure, unspecified Status: Acute Assessment and Plan: * Most likely due to profound dehydration. * As above, he is receiving aggressive IV fluid rehydration. * Carver catheter in place to monitor strict I/O. * Avoid nephrotoxic agents. * Renal ultrasound no hydro * CK elevated too. continue hydration, no NaHco3 yet with high Na (8) Secondary polycythemia: Code(s): D75.1 - Secondary polycythemia Status: Acute Assessment and Plan: * This diagnosis was documented on paperwork that accompanied him from [facility], and I have no further information. * Was significantly hemoconcentrated with hemoglobin and hematocrit as above on admission * Will monitor closely while hydrating, * Has fallen slowly and platelet 103K today (9) Coagulopathy: Code(s): D68.9 - Coagulation defect, unspecified Status: Acute Assessment and Plan: * He is o
--- NOTE | 2019-08-24 12:51 | PM.IMPN ---
Progress Note: A&P Assessment and Plan (1) Metabolic encephalopathy: Code(s): G93.41 - Metabolic encephalopathy Status: Acute Assessment and Plan: Secondary to acute kidney injury, electrolyte abnormalities, and profound uremia. Infection in initial differential but cultures blood and urine negative so far. Patient is NPO. discussed with regarding possible G-tube placement and she wants to proceed when able. Once has improved metabolically (2) Dehydration: Code(s): E86.0 - Dehydration Status: Acute Assessment and Plan: Patient is profoundly dehydrated with a sodium level still 162 BUN 93, and a creatinine of 2.1 all improved but still significally elevated. Also significantly hemoconcentrated . He is receiving aggressive IV fluid rehydration with close monitoring of his electrolytes and renal function. And change to D5W , 08/21 pm with persistant hypernatremia and hyperchhoremia, cover with thiamine (3) Lactic acidosis: Code(s): E87.2 - Acidosis Status: Acute Assessment and Plan: Lactic acid was elevated due to hypoperfusion from significant hypovolemia. blood cultures and urine cultures negative so far He recieved 30 milligrams/kilogram IV fluid rehydration, and repeat lactic acid normal (4) Hypotension: Code(s): I95.9 - Hypotension, unspecified Status: Acute Assessment and Plan: due to profound dehydration. Blood pressures have improved with IV fluids. Will hold antihypertensives and monitor blood pressures closely. (5) Hypernatremia: Code(s): E87.0 - Hyperosmolality and hypernatremia Status: Acute Assessment and Plan: Profound hypernatremia with a sodium of 168 on arrival to the emergency department. He received IV fluid boluses for lactic acidosis and sodium slowly falling. Sodium level will be monitored to ensure it is correcting at an appropriate level. Na 162 today so converted to D5W hydration 08/21 pm (6) Transaminasemia: Code(s): R74.0 - Nonspecific elevation of levels of transaminase and lactic acid dehydrogenase [LDH] Status: Acute Assessment and Plan: Possibly due to hypoperfusion, serology negative and sludge and stones on US Hepatitis panel negative and CK levels increased. Follow both Right upper quadrant ultrasound sludge and stones but no evidence of acute cholecystitis Continue to monitor closely. (7) Acute kidney injury: Code(s): N17.9 - Acute kidney failure, unspecified Status: Acute Assessment and Plan: Most likely due to profound dehydration. As above, he is receiving aggressive IV fluid rehydration. Carver catheter in place to monitor strict I/O. Avoid nephrotoxic agents. Renal ultrasound no hydro CK elevated too. continue hydration, no NaHco3 yet with high Na (8) Secondary polycythemia: Code(s): D75.1 - Secondary polycythemia Status: Acute Assessment and Plan: This diagnosis was documented on paperwork that accompanied him from [facility], and I have no further information. Was significantly hemoconcentrated with hemoglobin and hematocrit as above on admission Will monitor closely while hydrating, Has fallen slowly and platelet 103K today (9) Coagulopathy: Code(s): D68.9 - Coagulation defect, unspecified Status: Acute Assessment and Plan: He is on apixaban, which is being held. INR.still 4.9 (10) Recent cerebrovascular accident (CVA): Code(s): Z86.73 - Personal history of transient ischemic attack (TIA), and cerebral infarction without residual deficits Status: Acute Assessment and Plan: Recent CVA, left MCA, with right hemiplegia, aphasia, and dysphagia. All medications are on hold as he is NPO given altered mental status. Will hold on aspirin suppositories for now, given profound uremia. PT/OT when more alert w
[2019-08-24] MEDS: LATANOPROST 0.005% OP SOLN 2.5 ML BTL 1 DROP EACH EYE (21:45)
[2019-08-25 00:21] LABS: Glucose Point of Care 124 (65-105)
[2019-08-25] MEDS: DEXTROSE 5% 1,000 ML 1,000 ML 100 ML IV CONT ×3 (00:44→21:19)
[2019-08-25 05:11] LABS: Basophils Percent Auto 0.2 % (0.2-1.2); Eosinophils Absolute Auto 0.2 K/mm3 (0-0.3); Eosinophils Percent Auto 1.6 % (0-4.4); Hematocrit 51.2 % (42.0-52.0); Hemoglobin 15.7 g/dL (14.0-18.0); Immature Granulocyte Absolute 0.07 K/mm3 (0.00-0.031); Immature Granulocyte Percent A 0.7 % (0-0.5); Lymphocytes Absolute Auto 1.01 K/mm3 (0.9-3.2); Lymphocytes Percent Auto 10.2 % (18.3-44.2); Mean Corpuscular HGB Conc 30.7 g/dl (32-36); Mean Corpuscular Hemoglobin 32.6 pg (26-34); Mean Corpuscular Volume 106.2 fl (80-100); Monocytes Absolute Auto 0.5 K/mm3 (0.1-0.6); Monocytes Percent Auto 4.6 % (2.6-8.5); Neutrophils Absolute Auto 8.2 K/mm3 (1.3-6.7); Neutrophils Percent Auto 82.7 % (45.5-73.1); Nucleated Red Blood Cells Perc 0.2 % (0.0-0.2); Platelet Count Result 105 k/mm3 (150-375); Red Blood Count 4.82 M/mm3 (4.6-6.20); Red Cell Distribution Width 14.5 % (11.5-14.5); White Blood Count 9.9 K/mm3 (4.5-10.0)
[2019-08-25 05:22] LABS: Alanine Aminotransferase 166 U/L (4-50); Albumin Level 3.4 g/dL (3.5-5.1); Alkaline Phosphatase 117 U/L (38-126); Aspartate Amino Transferase 632 U/L (17-59); Bilirubin,Total 0.6 mg/dL (0.2-1.3); Blood Urea Nitrogen 64 mg/dL (9-20); Calcium 8.1 mg/dL (8.4-10.2); Carbon Dioxide 25 mmol/L (22-30); Chloride 125 mmol/L (98-107); Estimated CRCL calculation 32 ml/min; Estimated Glomerular Filt Rate 45; Glucose 138 mg/dL (75-110); INR 2.7; Potassium 3.9 mmol/L (3.4-5.0); Prothrombin Time 28.3 Seconds (11.1-14.7); Sodium 155 mmol/L (137-145)
[2019-08-25 05:31] LABS: Glucose Point of Care 131 (65-105)
[2019-08-25 06:19] LABS: Creatine Kinase 15136 U/L (55-170)
[2019-08-25 08:00] VITALS: BP 131/61; PULSE 68; RESP 22; TEMP 36.4; O2SAT 95; O2SAT 98
[2019-08-25] MEDS: THIAMINE HCL 200 MG/2 ML VIAL 100 MG IV PUSH (08:55)
[2019-08-25] MEDS: NYSTATIN 100,000 UNITS/ML SUSP 5 ML ORAL.SUSP PO ×4 (08:55→21:14)
[2019-08-25 12:00] VITALS: BP 134/67; PULSE 75; RESP 20; TEMP 36.9; O2SAT 98
--- NOTE | 2019-08-25 13:40 | PCDIET ---
Nutrition Follow-Up Complete: Nutrition Diagnosis: Inadequate oral intake r/t dysphagia and AMS as evidence by Hx of CVA, per RN, NPO status. Nutrition Goal: Initiate diet when medically appropriate. Goal not met. Patient is NPO with plan for g-tube placement once medically appropriate. If g-tube feedings initiated, recommend Jevity 1.2 at goal rate of 70mL/hr for 1848kcal, 85g protein and 1243mL free water. Recommend 50mL water flush every 4 hours. Last recorded weight is 66.2 kg which is stable. Bowel Motility: +Bowel sounds. Uncertain date for last BM. Labs Reviewed: Glu (131), BUN (64), Cr (1.5), Na (155), Alb (3.4) Meds Noted: Rocephin, Thiamine Additional Notes: Previous fluid boluses noted. Recommend additional IV fluids as medically appropriate. Nutrition Monitoring and Evaluation: Follow up every 3 days.
--- NOTE | 2019-08-25 15:14 | PC.NURSE ---
This patient, Eric De La Rosa, was received from [[facility] ] on 08/25/19 at 1514. Personal belongings list checked and signed. Patient/family oriented to unit policies and routines
--- NOTE | 2019-08-25 15:44 | P.PNIM_ITS ---
Progress Note: A&P Assessment and Plan (1) Metabolic encephalopathy: Code(s): G93.41 - Metabolic encephalopathy Status: Acute Assessment and Plan: * Secondary to acute kidney injury, electrolyte abnormalities, and profound uremia. slowly improving * Infection in initial differential but cultures blood and urine continue negative . * Patient is NPO. discussed with 08/23 regarding possible G-tube placement and she wants to proceed when able. Once has improved metabolically (2) Dehydration: Code(s): E86.0 - Dehydration Status: Acute Assessment and Plan: * Patient is profoundly dehydrated with a sodium level still 155 BUN 64, and a creatinine of 1.5 all improved but still significally elevated. * Also was significantly hemoconcentrated . * He is receiving aggressive IV fluid rehydration with close monitoring of his electrolytes and renal function. * And change to D5W , 08/21 pm with persistant hypernatremia and hyperchhoremia, covered with thiamine (3) Lactic acidosis: Code(s): E87.2 - Acidosis Status: Acute Assessment and Plan: * Lactic acid was elevated due to hypoperfusion from significant hypovolemia. * blood cultures and urine cultures negative so far * He recieved 30 milligrams/kilogram IV fluid rehydration, and repeat lactic acid normal (4) Hypotension: Code(s): I95.9 - Hypotension, unspecified Status: Acute Assessment and Plan: * due to profound dehydration. * Blood pressures have improved with IV fluids.. (5) Hypernatremia: Code(s): E87.0 - Hyperosmolality and hypernatremia Status: Acute Assessment and Plan: * Profound hypernatremia with a sodium of 168 on arrival to the emergency department. * He received IV fluid boluses for lactic acidosis and sodium slowly falling. * Sodium level will be monitored to ensure it is correcting at an appropriate level.and rate * Na 155 today after converted to D5W hydration 08/21 pm (6) Transaminasemia: Code(s): R74.0 - Nonspecific elevation of levels of transaminase and lactic acid dehydrogenase [LDH] Status: Acute Assessment and Plan: * probably due to hypoperfusion, serology negative and sludge and stones on US * Hepatitis panel negative and CK levels increased. still at 15K Follow both * Right upper quadrant ultrasound sludge and stones but no evidence of acute cholecystitis * Continue to monitor closely. (7) Acute kidney injury: Code(s): N17.9 - Acute kidney failure, unspecified Status: Acute Assessment and Plan: * Most likely due to profound dehydration. * As above, he is receiving aggressive IV fluid rehydration. * Carver catheter in place to monitor strict I/O. * Avoid nephrotoxic agents. * Renal ultrasound no hydro * CK elevated too. continue hydration, no NaHco3 yet with high Na (8) Secondary polycythemia: Code(s): D75.1 - Secondary polycythemia Status: Acute Assessment and Plan: * This diagnosis was documented on paperwork that accompanied him from [facility], and I have no further information. * Was significantly hemoconcentrated with hemoglobin and hematocrit as above on admission * Will monitor closely while hydrating, * Has fallen slowly and platelet 102K today (9) Coagulopathy: Code(s): D68.9 - Coagulation defect, unspecified Status: Acute Assessment and Plan: * He was on apixaban, w
--- NOTE | 2019-08-25 15:44 | PM.IMPN ---
Progress Note: A&P Assessment and Plan (1) Metabolic encephalopathy: Code(s): G93.41 - Metabolic encephalopathy Status: Acute Assessment and Plan: Secondary to acute kidney injury, electrolyte abnormalities, and profound uremia. slowly improving Infection in initial differential but cultures blood and urine continue negative . Patient is NPO. discussed with 08/23 regarding possible G-tube placement and she wants to proceed when able. Once has improved metabolically (2) Dehydration: Code(s): E86.0 - Dehydration Status: Acute Assessment and Plan: Patient is profoundly dehydrated with a sodium level still 155 BUN 64, and a creatinine of 1.5 all improved but still significally elevated. Also was significantly hemoconcentrated . He is receiving aggressive IV fluid rehydration with close monitoring of his electrolytes and renal function. And change to D5W , 08/21 pm with persistant hypernatremia and hyperchhoremia, covered with thiamine (3) Lactic acidosis: Code(s): E87.2 - Acidosis Status: Acute Assessment and Plan: Lactic acid was elevated due to hypoperfusion from significant hypovolemia. blood cultures and urine cultures negative so far He recieved 30 milligrams/kilogram IV fluid rehydration, and repeat lactic acid normal (4) Hypotension: Code(s): I95.9 - Hypotension, unspecified Status: Acute Assessment and Plan: due to profound dehydration. Blood pressures have improved with IV fluids.. (5) Hypernatremia: Code(s): E87.0 - Hyperosmolality and hypernatremia Status: Acute Assessment and Plan: Profound hypernatremia with a sodium of 168 on arrival to the emergency department. He received IV fluid boluses for lactic acidosis and sodium slowly falling. Sodium level will be monitored to ensure it is correcting at an appropriate level.and rate Na 155 today after converted to D5W hydration 08/21 pm (6) Transaminasemia: Code(s): R74.0 - Nonspecific elevation of levels of transaminase and lactic acid dehydrogenase [LDH] Status: Acute Assessment and Plan: probably due to hypoperfusion, serology negative and sludge and stones on US Hepatitis panel negative and CK levels increased. still at 15K Follow both Right upper quadrant ultrasound sludge and stones but no evidence of acute cholecystitis Continue to monitor closely. (7) Acute kidney injury: Code(s): N17.9 - Acute kidney failure, unspecified Status: Acute Assessment and Plan: Most likely due to profound dehydration. As above, he is receiving aggressive IV fluid rehydration. Carver catheter in place to monitor strict I/O. Avoid nephrotoxic agents. Renal ultrasound no hydro CK elevated too. continue hydration, no NaHco3 yet with high Na (8) Secondary polycythemia: Code(s): D75.1 - Secondary polycythemia Status: Acute Assessment and Plan: This diagnosis was documented on paperwork that accompanied him from [facility], and I have no further information. Was significantly hemoconcentrated with hemoglobin and hematocrit as above on admission Will monitor closely while hydrating, Has fallen slowly and platelet 102K today (9) Coagulopathy: Code(s): D68.9 - Coagulation defect, unspecified Status: Acute Assessment and Plan: He was on apixaban, which is being held. INR. 2.7 today (10) Recent cerebrovascular accident (CVA): Code(s): Z86.73 - Personal history of transient ischemic attack (TIA), and cerebral infarction without residual deficits Status: Acute Assessment and Plan: Recent CVA, left MCA, with right hemiplegia, aphasia, and dysphagia. All medications are on hold as he is NPO given altered mental status. Will hold on aspirin suppositories for now, given profound uremia. PT/OT when more alert do
[2019-08-25 16:00] VITALS: BP 100/52; PULSE 67; RESP 18; TEMP 36.7; O2SAT 96
--- NOTE | 2019-08-25 16:02 | PC.NURSE ---
Called report to Shira and transferred to room 314
[2019-08-25 17:47] LABS: Glucose Point of Care 117 (65-105)
[2019-08-25 19:36] LABS: Glucose Point of Care 122 (65-105)
[2019-08-25] MEDS: LATANOPROST 0.005% OP SOLN 2.5 ML BTL 1 DROP EACH EYE (21:14)
[2019-08-25 22:00] VITALS: BP 107/55; PULSE 72; RESP 20; TEMP 36.7; O2SAT 96
[2019-08-26 00:20] LABS: Glucose Point of Care 138 (65-105)
[2019-08-26 06:00] VITALS: BP 120/56; PULSE 73; RESP 20; TEMP 36.4; O2SAT 97
[2019-08-26 06:36] LABS: INR 1.8; Prothrombin Time 20.3 Seconds (11.1-14.7)
[2019-08-26 06:39] LABS: Glucose Point of Care 133 (65-105)
[2019-08-26 06:45] LABS: Alanine Aminotransferase 265 U/L (4-50); Albumin Level 3.2 g/dL (3.5-5.1); Alkaline Phosphatase 133 U/L (38-126); Aspartate Amino Transferase 621 U/L (17-59); Bilirubin,Total 0.7 mg/dL (0.2-1.3); Blood Urea Nitrogen 47 mg/dL (9-20); Calcium 7.8 mg/dL (8.4-10.2); Carbon Dioxide 24 mmol/L (22-30); Chloride 117 mmol/L (98-107); Estimated CRCL calculation 37 ml/min; Estimated Glomerular Filt Rate 53; Glucose 124 mg/dL (75-110); Potassium 3.7 mmol/L (3.4-5.0); Sodium 148 mmol/L (137-145)
[2019-08-26 06:55] LABS: Basophils Percent Auto 0.1 % (0.2-1.2); Eosinophils Absolute Auto 0.1 K/mm3 (0-0.3); Eosinophils Percent Auto 1.1 % (0-4.4); Hematocrit 50.9 % (42.0-52.0); Hemoglobin 15.9 g/dL (14.0-18.0); Immature Granulocyte Absolute 0.07 K/mm3 (0.00-0.031); Immature Granulocyte Percent A 0.7 % (0-0.5); Lymphocytes Absolute Auto 0.99 K/mm3 (0.9-3.2); Lymphocytes Percent Auto 9.5 % (18.3-44.2); Mean Corpuscular HGB Conc 31.2 g/dl (32-36); Mean Corpuscular Volume 105.6 fl (80-100); Mean Platelet Volume 12.8 fl (7.4-10.4); Monocytes Absolute Auto 0.5 K/mm3 (0.1-0.6); Monocytes Percent Auto 5.1 % (2.6-8.5); Neutrophils Absolute Auto 8.7 K/mm3 (1.3-6.7); Neutrophils Percent Auto 83.5 % (45.5-73.1); Nucleated Red Blood Cells Perc 0.2 % (0.0-0.2); Platelet Count Result 78 k/mm3 (150-375); Red Blood Count 4.82 M/mm3 (4.6-6.20); Red Cell Distribution Width 14.3 % (11.5-14.5); White Blood Count 10.5 K/mm3 (4.5-10.0)
[2019-08-26 07:08] LABS: Creatine Kinase 10329 U/L (55-170)
[2019-08-26] MEDS: DEXTROSE 5% 1,000 ML 1,000 ML 100 ML IV CONT ×2 (09:35→20:39)
[2019-08-26] MEDS: NYSTATIN 100,000 UNITS/ML SUSP 5 ML ORAL.SUSP PO ×4 (09:46→20:39)
[2019-08-26] MEDS: THIAMINE HCL 200 MG/2 ML VIAL 100 MG IV PUSH (09:46)
--- NOTE | 2019-08-26 12:37 | WPDGICN ---
Assessment and Plan Assessment and plan (1) Dysphagia: Qualifiers: Dysphagia type: unspecified Qualified Code(s): R13.10 - Dysphagia, unspecified Code(s): R13.10 - Dysphagia, unspecified Status: Acute Assessment and Plan: patient presented to the hospital with profound dehydration, ROMAN, rhabdomyolysis after a recent CVA. He needs g-tube placement, will wait another day (INR is coming down and eliquis has been on hold). Hospitalist already discussed with and she is agreeable (2) Aphasia: Code(s): R47.01 - Aphasia Status: Acute Assessment and Plan: from recent cva (3) Recent cerebrovascular accident (CVA): Code(s): Z86.73 - Personal history of transient ischemic attack (TIA), and cerebral infarction without residual deficits Status: Acute (4) Coagulopathy: Code(s): D68.9 - Coagulation defect, unspecified Status: Acute Assessment and Plan: eliquis now on hold (5) Acute kidney injury: Code(s): N17.9 - Acute kidney failure, unspecified Status: Acute Assessment and Plan: creatinine improving (multifactorial- high ck, dehydration, poor oral intake, etc) (6) Rhabdomyolysis: Qualifiers: Rhabdomyolysis type: non-traumatic Qualified Code(s): M62.82 - Rhabdomyolysis Code(s): M62.82 - Rhabdomyolysis Status: Acute (7) Transaminasemia: Code(s): R74.0 - Nonspecific elevation of levels of transaminase and lactic acid dehydrogenase [LDH] Status: Acute Assessment and Plan: probably from rhabdomyolysis, ruq ultrasound reviewed (cholelithiasis but no inflammation), hepatitis panel negative. (8) Dehydration: Code(s): E86.0 - Dehydration Status: Acute (9) Metabolic encephalopathy: Code(s): G93.41 - Metabolic encephalopathy Status: Acute GI Consult Note Consult date/time: 08/26/19 12:37 Reason for consult: dysphagia, unable to eat HPI: Eric De La Rosa is a 79 year old male who is non-verbal thus history obtained from records. He had a recent CVA (left MCA) with aphasia in August 07 at [facility] and [facility] after that hospitalization then transferred here few days ago because failure to thrive and worsening mental status. He was found to have significant renal failure with profound dehydration (creat 5, lactic acid 4 with rhabdomyolysis)- he now is evaluated by nephrology and renal function slowly improving. He has aphasia and not eating anything. Hospitalist talked to in order to place G-tube given current neurological status. His eliquis has been on hold since admission (INR 4.5 on admission, now 1.8) Review of Systems Review of Systems: ROS unobtainable: Yes unobtainable due to mental status [facility] Surgical History Surgical History (Updated 08/21/19 @ 20:41 by Lizabeth Justin PA-C) History of cataract removal with insertion of prosthetic lens Social History Social History (Updated 08/21/19 @ 17:44 by Lizabeth Justin PA-C) Social History: The patient lives in [place] with his . He is currently at [facility] since his recent stroke. He is retired from the [employer]. He has a history of alcohol abuse his , Liana, is his healthcare power of city attorney and he is listed as a full code. Smoking status: Former smoker Alcohol intake: unknown Substance use: unknown Gender identity (if verbalized by the patient): Male Spiritual care concerns: No Agree to blood products: Yes Meds Home Medications and Allergies Home Medications Medication Instructions Recorded Confirmed Type acetaminophen 650 mg PO TID PRN 08/21/19 08/21/19 History apixaban [Eliquis] 5 mg PO BID 08/21/19 08/21/19 History atorvastatin 40 mg PO DAILY 08/21/19 08/21/19 History bisacodyl 10 mg PO HS 08/21/19 08/21/19 History bisacodyl 10 mg MI DAILY PRN 08/21/19 08/21/19 History clopidogrel 75 mg PO DAILY 08/21/19 08/21/19
[2019-08-26 14:48] LABS: Glucose Point of Care 117 (65-105)
[2019-08-26 15:32] VITALS: BP 96/63; PULSE 68; RESP 16; TEMP 37; O2SAT 99
--- NOTE | 2019-08-26 16:04 | P.PNIM_ITS ---
Progress Note: A&P Assessment and Plan (1) Metabolic encephalopathy: Code(s): G93.41 - Metabolic encephalopathy Status: Acute Assessment and Plan: * Secondary to acute kidney injury, electrolyte abnormalities, and profound uremia. slowly improving * Infection in initial differential but cultures blood and urine continue negative . * Patient is NPO. discussed with 08/23 regarding possible G-tube placement and she wants to proceed when able. Once has improved metabolically (2) Dehydration: Code(s): E86.0 - Dehydration Status: Acute Assessment and Plan: * Patient is profoundly dehydrated with a sodium level still 148 BUN 64, and a creatinine of 1.5 all improved but still significally elevated. * Also was significantly hemoconcentrated . * He is receiving aggressive IV fluid rehydration with close monitoring of his electrolytes and renal function. * And change to D5W , 08/21 pm with persistant hypernatremia and hyperchhoremia, covered with thiamine (3) Lactic acidosis: Code(s): E87.2 - Acidosis Status: Acute Assessment and Plan: * Lactic acid was elevated due to hypoperfusion from significant hypovolemia. * blood cultures and urine cultures negative so far * He recieved 30 milligrams/kilogram IV fluid rehydration, and repeat lactic acid normal (4) Hypotension: Code(s): I95.9 - Hypotension, unspecified Status: Acute Assessment and Plan: * due to profound dehydration. * Blood pressures have improved with IV fluids.. (5) Hypernatremia: Code(s): E87.0 - Hyperosmolality and hypernatremia Status: Acute Assessment and Plan: * Profound hypernatremia with a sodium of 168 on arrival to the emergency department. * He received IV fluid boluses for lactic acidosis and sodium slowly falling. * Sodium level will be monitored to ensure it is correcting at an appropriate level.and rate * Na 148 today after converted to D5W hydration 08/21 pm (6) Transaminasemia: Code(s): R74.0 - Nonspecific elevation of levels of transaminase and lactic acid dehydrogenase [LDH] Status: Acute Assessment and Plan: * probably due to hypoperfusion, serology negative and sludge and stones on US * Hepatitis panel negative and CK levels decreased.but still at 10K Follow both * Right upper quadrant ultrasound sludge and stones but no evidence of acute cholecystitis * Continue to monitor closely. (7) Acute kidney injury: Code(s): N17.9 - Acute kidney failure, unspecified Status: Acute Assessment and Plan: * Most likely due to profound dehydration. * As above, he is receiving aggressive IV fluid rehydration. * Carver catheter in place to monitor strict I/O. * Avoid nephrotoxic agents. * Renal ultrasound no hydro * CK elevated too. continue hydration, no NaHco3 yet with high Na (8) Secondary polycythemia: Code(s): D75.1 - Secondary polycythemia Status: Acute Assessment and Plan: * This diagnosis was documented on paperwork that accompanied him from [facility], and I have no further information. * Was significantly hemoconcentrated with hemoglobin and hematocrit as above on admission * Will monitor closely while hydrating, * Has fallen slowly and platelet 102K today (9) Coagulopathy: Code(s): D68.9 - Coagulation defect, unspecified Status: Acute Assessment and Plan: * He was on a
--- NOTE | 2019-08-26 16:04 | PM.IMPN ---
Progress Note: A&P Assessment and Plan (1) Metabolic encephalopathy: Code(s): G93.41 - Metabolic encephalopathy Status: Acute Assessment and Plan: Secondary to acute kidney injury, electrolyte abnormalities, and profound uremia. slowly improving Infection in initial differential but cultures blood and urine continue negative . Patient is NPO. discussed with 08/23 regarding possible G-tube placement and she wants to proceed when able. Once has improved metabolically (2) Dehydration: Code(s): E86.0 - Dehydration Status: Acute Assessment and Plan: Patient is profoundly dehydrated with a sodium level still 148 BUN 64, and a creatinine of 1.5 all improved but still significally elevated. Also was significantly hemoconcentrated . He is receiving aggressive IV fluid rehydration with close monitoring of his electrolytes and renal function. And change to D5W , 08/21 pm with persistant hypernatremia and hyperchhoremia, covered with thiamine (3) Lactic acidosis: Code(s): E87.2 - Acidosis Status: Acute Assessment and Plan: Lactic acid was elevated due to hypoperfusion from significant hypovolemia. blood cultures and urine cultures negative so far He recieved 30 milligrams/kilogram IV fluid rehydration, and repeat lactic acid normal (4) Hypotension: Code(s): I95.9 - Hypotension, unspecified Status: Acute Assessment and Plan: due to profound dehydration. Blood pressures have improved with IV fluids.. (5) Hypernatremia: Code(s): E87.0 - Hyperosmolality and hypernatremia Status: Acute Assessment and Plan: Profound hypernatremia with a sodium of 168 on arrival to the emergency department. He received IV fluid boluses for lactic acidosis and sodium slowly falling. Sodium level will be monitored to ensure it is correcting at an appropriate level.and rate Na 148 today after converted to D5W hydration 08/21 pm (6) Transaminasemia: Code(s): R74.0 - Nonspecific elevation of levels of transaminase and lactic acid dehydrogenase [LDH] Status: Acute Assessment and Plan: probably due to hypoperfusion, serology negative and sludge and stones on US Hepatitis panel negative and CK levels decreased.but still at 10K Follow both Right upper quadrant ultrasound sludge and stones but no evidence of acute cholecystitis Continue to monitor closely. (7) Acute kidney injury: Code(s): N17.9 - Acute kidney failure, unspecified Status: Acute Assessment and Plan: Most likely due to profound dehydration. As above, he is receiving aggressive IV fluid rehydration. Carver catheter in place to monitor strict I/O. Avoid nephrotoxic agents. Renal ultrasound no hydro CK elevated too. continue hydration, no NaHco3 yet with high Na (8) Secondary polycythemia: Code(s): D75.1 - Secondary polycythemia Status: Acute Assessment and Plan: This diagnosis was documented on paperwork that accompanied him from [facility], and I have no further information. Was significantly hemoconcentrated with hemoglobin and hematocrit as above on admission Will monitor closely while hydrating, Has fallen slowly and platelet 102K today (9) Coagulopathy: Code(s): D68.9 - Coagulation defect, unspecified Status: Acute Assessment and Plan: He was on apixaban, which is being held. INR. 1.8 today (10) Recent cerebrovascular accident (CVA): Code(s): Z86.73 - Personal history of transient ischemic attack (TIA), and cerebral infarction without residual deficits Status: Acute Assessment and Plan: Recent CVA, left MCA, with right hemiplegia, aphasia, and dysphagia. All medications are on hold as he is NPO given altered mental status. Will hold on aspirin suppositories for now, given profound uremia. PT/OT when more alert wisaravanan
[2019-08-26 18:04] LABS: Glucose Point of Care 117 (65-105)
[2019-08-26] MEDS: LATANOPROST 0.005% OP SOLN 2.5 ML BTL 1 DROP EACH EYE (20:39)
[2019-08-26 22:00] VITALS: BP 118/62; PULSE 71; RESP 16; TEMP 37; O2SAT 98
[2019-08-27 00:21] LABS: Glucose Point of Care 111 (65-105)
[2019-08-27 06:00] VITALS: BP 112/61; PULSE 76; RESP 16; TEMP 36.6; O2SAT 97
[2019-08-27] MEDS: DEXTROSE 5% 1,000 ML 1,000 ML 100 ML IV CONT ×2 (06:22→17:52)
[2019-08-27 07:36] LABS: Glucose Point of Care 101 (65-105)
[2019-08-27 07:55] VITALS: BMI 11.0
--- NOTE | 2019-08-27 08:01 | WPDGIPROGNO ---
Progress Note: A&P Assessment and Plan (1) Aphasia: Code(s): R47.01 - Aphasia Status: Acute Assessment and Plan: from previous CVA, needs PEG placement (he came with profound dehydration, jimenez) (2) Dysphagia: Qualifiers: Dysphagia type: unspecified Qualified Code(s): R13.10 - Dysphagia, unspecified Code(s): R13.10 - Dysphagia, unspecified Status: Acute Assessment and Plan: egd with peg placement tomorrow (3) Recent cerebrovascular accident (CVA): Code(s): Z86.73 - Personal history of transient ischemic attack (TIA), and cerebral infarction without residual deficits Status: Acute (4) Rhabdomyolysis: Qualifiers: Rhabdomyolysis type: non-traumatic Qualified Code(s): M62.82 - Rhabdomyolysis Code(s): M62.82 - Rhabdomyolysis Status: Acute Assessment and Plan: labs pending this morning, jimenez improved, nephrology on board (5) Acute kidney injury: Code(s): N17.9 - Acute kidney failure, unspecified Status: Acute (6) Transaminasemia: Code(s): R74.0 - Nonspecific elevation of levels of transaminase and lactic acid dehydrogenase [LDH] Status: Acute Assessment and Plan: most likely related to high CPK, monitor Subjective Date/time seen: 08/27/19 08:01 Interval history: no changes Review of Systems Review of Systems: ROS unobtainable: Yes unobtainable due to mental status Exam Const: Other: Acutely ill-appearing elderly gentleman. He will open his eyes but does not follow commands or answer questions. HENMT: General nose exam: Normal nares present Eyes: Other: previous cataract surgery Neck: Neck: no JVD Resp: Auscultation: clear to auscultation bilaterally Cardio: Rate: regular rate Rhythm: regular rhythm GI: Inspection: non-distended GI Palp: Yes Soft to palpation and No Tenderness to palpation present (GI) Auscultation: normal bowel sounds Urinary Catheter: Urinary Catheter: patent and draining Skin: General skin exam: normal color Neuro: Other: right hemiplejia, aphasia, non-verbal Extrem: General: normal to inspection Psych: Other: non-verbal Objective Data Vital Signs Vital Signs: Vital Signs - 24 hr 08/26/19 15:32 08/26/19 22:00 08/27/19 06:00 Temperature 98.6 F 98.6 F 98 F Pulse Rate 68 71 76 Respiratory Rate 16 16 16 Blood Pressure 96/63 L 118/62 112/61 Pulse Oximetry 99 98 97 Intake/Output Intake/Output: Intake & Output 08/24/19 08/25/19 08/26/19 08/27/19 23:59 23:59 23:59 23:59 Intake Total 2350 2750 2000 1000 Output Total 1450 1700 1125 600 Balance 900 1050 875 400 Meds/Results Medications: Active Medications Generic Name Dose Route Start Last Admin Trade Name Freq PRN Reason Stop Dose Admin Acetaminophen 650 mg 08/21/19 16:39 Tylenol Tablet PO Q4H PRN Mild Pain (1-3) or Fever Ceftriaxone Sodium/Dextrose 1 gm in 50 mls @ 100 mls/hr 08/22/19 18:00 08/26/19 17:52 Rocephin 1 Gm/D5w 50 Ml IVPB 100 mls/hr Q24H MARIN Administration Dextrose 1,000 mls @ 100 mls/hr 08/23/19 06:00 08/27/19 06:22 Dextrose 5% 1,000 Ml IV CONT 100 mls/hr .Q10H MARIN Administration Latanoprost 1 drop 08/21/19 21:00 08/26/19 20:39 Xalatan EACH EYE 1 drop HS MARIN Administration Nystatin 5 ml 08/21/19 21:00 08/26/19 20:39 Nystatin 100,000 Units/Ml Susp PO 5 ml QID MARIN Administration Thiamine HCl 100 mg 08/24/19 09:00 08/26/19 09:46 Thiamine Hcl Inj IV PUSH 100 mg QAM MARIN Administration Radiology Results: ITS Impressions Head CT 08/21/19 16:07 IMPRESSION: 1. Multiple old infarcts in the brain. 2. Moderate nonspecific cerebral white matter disease and disease of the deep james nuclei, which likely represents chronic small vessel ischemic disease. Chest X-Ray 08/21/19 16:35 IMPRESSION: 1. Mild scarring at the lung apices. Renal Ultrasound 08/22/19 13:20 IMPRESSION: 1. N
[2019-08-27 09:13] LABS: Basophils Percent Auto 0.2 % (0.2-1.2); Eosinophils Absolute Auto 0.1 K/mm3 (0-0.3); Eosinophils Percent Auto 1.2 % (0-4.4); Hematocrit 46.1 % (42.0-52.0); Hemoglobin 14.7 g/dL (14.0-18.0); Immature Granulocyte Percent A 0.8 % (0-0.5); Lymphocytes Absolute Auto 1.07 K/mm3 (0.9-3.2); Mean Corpuscular HGB Conc 31.9 g/dl (32-36); Mean Corpuscular Hemoglobin 33.1 pg (26-34); Mean Corpuscular Volume 103.8 fl (80-100); Monocytes Absolute Auto 0.6 K/mm3 (0.1-0.6); Monocytes Percent Auto 5.1 % (2.6-8.5); Neutrophils Absolute Auto 9.9 K/mm3 (1.3-6.7); Neutrophils Percent Auto 83.7 % (45.5-73.1); Platelet Count Result 101 k/mm3 (150-375); Red Blood Count 4.44 M/mm3 (4.6-6.20); Red Cell Distribution Width 13.9 % (11.5-14.5); White Blood Count 11.8 K/mm3 (4.5-10.0)
[2019-08-27 09:23] LABS: INR 1.8
[2019-08-27 09:26] LABS: Alanine Aminotransferase 275 U/L (4-50); Albumin Level 3.1 g/dL (3.5-5.1); Alkaline Phosphatase 133 U/L (38-126); Aspartate Amino Transferase 524 U/L (17-59); Bilirubin,Total 0.7 mg/dL (0.2-1.3); Blood Urea Nitrogen 30 mg/dL (9-20); Calcium 7.8 mg/dL (8.4-10.2); Carbon Dioxide 27 mmol/L (22-30); Chloride 107 mmol/L (98-107); Estimated CRCL calculation 40 ml/min; Estimated Glomerular Filt Rate 58; Glucose 120 mg/dL (75-110); Potassium 4.2 mmol/L (3.4-5.0); Sodium 141 mmol/L (137-145)
[2019-08-27 10:00] LABS: Creatine Kinase 5879 U/L (55-170)
[2019-08-27] MEDS: THIAMINE HCL 200 MG/2 ML VIAL 100 MG IV PUSH (10:15)
[2019-08-27] MEDS: NYSTATIN 100,000 UNITS/ML SUSP 5 ML ORAL.SUSP PO ×4 (10:16→21:31)
[2019-08-27 12:36] LABS: Glucose Point of Care 103 (65-105)
[2019-08-27 14:00] VITALS: BP 130/65; PULSE 81; RESP 16; TEMP 36.7; O2SAT 100
--- NOTE | 2019-08-27 14:57 | P.PNIM_ITS ---
Progress Note: A&P Assessment and Plan (1) Metabolic encephalopathy: Code(s): G93.41 - Metabolic encephalopathy Status: Acute Assessment and Plan: * Secondary to acute kidney injury, electrolyte abnormalities, and profound uremia. slowly improving * Infection in initial differential but cultures blood and urine continue negative so antibiotics d/mauricio . * Patient is NPO. discussed with 08/23 regarding possible G-tube placement and she wants to proceed when able. * Will plan on peg 08/27 (2) Dehydration: Code(s): E86.0 - Dehydration Status: Acute Assessment and Plan: * Patient was profoundly dehydrated but now Na 141, Bun 30 and creatinine 1.2, all improved. * Also was significantly hemoconcentrated but hgb now normal. * He was receiving aggressive IV fluid rehydration with close monitoring of his electrolytes and renal function. * And change to D5W , 08/21 pm with persistant hypernatremia and hyperchhoremia, covered with thiamine (3) Lactic acidosis: Code(s): E87.2 - Acidosis Status: Acute Assessment and Plan: * Lactic acid was elevated due to hypoperfusion from significant hypovolemia. * blood cultures and urine cultures negative * He recieved 30 milligrams/kilogram IV fluid rehydration, and repeat lactic acid normal (4) Hypotension: Code(s): I95.9 - Hypotension, unspecified Status: Acute Assessment and Plan: * due to profound dehydration. * Blood pressures have improved with IV fluids.. (5) Hypernatremia: Code(s): E87.0 - Hyperosmolality and hypernatremia Status: Acute Assessment and Plan: * Profound hypernatremia with a sodium of 168 on arrival to the emergency depa rtment. * He received IV fluid boluses for lactic acidosis and sodium slowly falling. * Sodium level will be monitored to ensure it is correcting at an appropriate level.and rate * Na 141 today after converted to D5W hydration 08/21 pm (6) Transaminasemia: Code(s): R74.0 - Nonspecific elevation of levels of transaminase and lactic acid dehydrogenase [LDH] Status: Acute Assessment and Plan: * probably due to hypoperfusion, serology negative and sludge and stones on US * Hepatitis panel negative and CK levels decreased.but still at 5879 Follow both * Right upper quadrant ultrasound sludge and stones but no evidence of acute cholecystitis * Continue to monitor closely. (7) Acute kidney injury: Code(s): N17.9 - Acute kidney failure, unspecified Status: Acute Assessment and Plan: * Most likely due to profound dehydration. * As above, he is receiving aggressive IV fluid rehydration. * Carver catheter in place to monitor strict I/O. * Avoid nephrotoxic agents. * Renal ultrasound no hydro * CK elevated too. continue hydration, no NaHco3 with high Na and now ck falling (8) Secondary polycythemia: Code(s): D75.1 - Secondary polycythemia Status: Acute Assessment and Plan: * This diagnosis was documented on paperwork that accompanied him from [facility], and I have no further information. * Was significantly hemoconcentrated with hemoglobin and hematocrit as above on admission * Will monitor closely while hydrating, * Has fallen slowly and platelet 101K today (9) Coagulopathy: Code(s): D68.9 - Coagulation defect, unspecified Status: Acute Assessment and Plan: * He was
--- NOTE | 2019-08-27 14:57 | PM.IMPN ---
Progress Note: A&P Assessment and Plan (1) Metabolic encephalopathy: Code(s): G93.41 - Metabolic encephalopathy Status: Acute Assessment and Plan: Secondary to acute kidney injury, electrolyte abnormalities, and profound uremia. slowly improving Infection in initial differential but cultures blood and urine continue negative so antibiotics d/mauricio . Patient is NPO. discussed with 08/23 regarding possible G-tube placement and she wants to proceed when able. Will plan on peg 08/27 (2) Dehydration: Code(s): E86.0 - Dehydration Status: Acute Assessment and Plan: Patient was profoundly dehydrated but now Na 141, Bun 30 and creatinine 1.2, all improved. Also was significantly hemoconcentrated but hgb now normal. He was receiving aggressive IV fluid rehydration with close monitoring of his electrolytes and renal function. And change to D5W , 08/21 pm with persistant hypernatremia and hyperchhoremia, covered with thiamine (3) Lactic acidosis: Code(s): E87.2 - Acidosis Status: Acute Assessment and Plan: Lactic acid was elevated due to hypoperfusion from significant hypovolemia. blood cultures and urine cultures negative He recieved 30 milligrams/kilogram IV fluid rehydration, and repeat lactic acid normal (4) Hypotension: Code(s): I95.9 - Hypotension, unspecified Status: Acute Assessment and Plan: due to profound dehydration. Blood pressures have improved with IV fluids.. (5) Hypernatremia: Code(s): E87.0 - Hyperosmolality and hypernatremia Status: Acute Assessment and Plan: Profound hypernatremia with a sodium of 168 on arrival to the emergency department. He received IV fluid boluses for lactic acidosis and sodium slowly falling. Sodium level will be monitored to ensure it is correcting at an appropriate level.and rate Na 141 today after converted to D5W hydration 08/21 pm (6) Transaminasemia: Code(s): R74.0 - Nonspecific elevation of levels of transaminase and lactic acid dehydrogenase [LDH] Status: Acute Assessment and Plan: probably due to hypoperfusion, serology negative and sludge and stones on US Hepatitis panel negative and CK levels decreased.but still at 5879 Follow both Right upper quadrant ultrasound sludge and stones but no evidence of acute cholecystitis Continue to monitor closely. (7) Acute kidney injury: Code(s): N17.9 - Acute kidney failure, unspecified Status: Acute Assessment and Plan: Most likely due to profound dehydration. As above, he is receiving aggressive IV fluid rehydration. Carver catheter in place to monitor strict I/O. Avoid nephrotoxic agents. Renal ultrasound no hydro CK elevated too. continue hydration, no NaHco3 with high Na and now ck falling (8) Secondary polycythemia: Code(s): D75.1 - Secondary polycythemia Status: Acute Assessment and Plan: This diagnosis was documented on paperwork that accompanied him from [facility], and I have no further information. Was significantly hemoconcentrated with hemoglobin and hematocrit as above on admission Will monitor closely while hydrating, Has fallen slowly and platelet 101K today (9) Coagulopathy: Code(s): D68.9 - Coagulation defect, unspecified Status: Acute Assessment and Plan: He was on apixaban, which is being held. INR. 1.8 today still (10) Recent cerebrovascular accident (CVA): Code(s): Z86.73 - Personal history of transient ischemic attack (TIA), and cerebral infarction without residual deficits Status: Acute Assessment and Plan: Recent CVA, left MCA, with right hemiplegia, aphasia, and dysphagia. All medications are on hold as he is NPO given altered mental status. Will hold on aspirin suppositories for now, given profound uremia. PT/OT when more alert
[2019-08-27 17:02] LABS: Glucose Point of Care 100 (65-105)
[2019-08-27 17:02] LABS: Glucose Point of Care 102 (65-105)
[2019-08-27 20:00] VITALS: PULSE 81; RESP 16; O2SAT 100
[2019-08-27] MEDS: LATANOPROST 0.005% OP SOLN 2.5 ML BTL 1 DROP EACH EYE (21:32)
[2019-08-27 22:35] VITALS: BP 135/70; PULSE 102; RESP 18; TEMP 36.8; O2SAT 86
[2019-08-27 23:33] VITALS: BP 109/54; PULSE 77; RESP 16; TEMP 36; O2SAT 100
[2019-08-28] VITALS (9 sets, daily range): BP systolic 74–127; BP diastolic 47–82; PULSE 61–95; RESP 14–19; TEMP 36.1–37.1; O2SAT 96–100
[2019-08-28 01:47] LABS: Glucose Point of Care 114 (65-105)
[2019-08-28] MEDS: DEXTROSE 5% 1,000 ML 1,000 ML 100 ML IV CONT ×2 (04:18→12:14)
[2019-08-28 06:20] LABS: Basophils Percent Auto 0.2 % (0.2-1.2); Eosinophils Absolute Auto 0.1 K/mm3 (0-0.3); Eosinophils Percent Auto 1.2 % (0-4.4); Hematocrit 48.1 % (42.0-52.0); Hemoglobin 15.5 g/dL (14.0-18.0); Immature Granulocyte Absolute 0.11 K/mm3 (0.00-0.031); Lymphocytes Absolute Auto 1.31 K/mm3 (0.9-3.2); Lymphocytes Percent Auto 11.5 % (18.3-44.2); Mean Corpuscular HGB Conc 32.2 g/dl (32-36); Mean Corpuscular Hemoglobin 32.4 pg (26-34); Mean Corpuscular Volume 100.6 fl (80-100); Monocytes Absolute Auto 0.6 K/mm3 (0.1-0.6); Monocytes Percent Auto 5.6 % (2.6-8.5); Neutrophils Absolute Auto 9.2 K/mm3 (1.3-6.7); Neutrophils Percent Auto 80.5 % (45.5-73.1); Platelet Count Result 121 k/mm3 (150-375); Red Blood Count 4.78 M/mm3 (4.6-6.20); Red Cell Distribution Width 13.8 % (11.5-14.5); White Blood Count 11.4 K/mm3 (4.5-10.0)
[2019-08-28 06:24] LABS: Glucose Point of Care 125 (65-105)
[2019-08-28 06:30] LABS: INR 1.3; Prothrombin Time 15.5 Seconds (11.1-14.7)
[2019-08-28 06:36] LABS: Alanine Aminotransferase 251 U/L (4-50); Albumin Level 3.3 g/dL (3.5-5.1); Alkaline Phosphatase 139 U/L (38-126); Aspartate Amino Transferase 391 U/L (17-59); Bilirubin,Total 0.9 mg/dL (0.2-1.3); Blood Urea Nitrogen 22 mg/dL (9-20); Calcium 8.1 mg/dL (8.4-10.2); Carbon Dioxide 23 mmol/L (22-30); Chloride 107 mmol/L (98-107); Estimated CRCL calculation 53 ml/min; Estimated Glomerular Filt Rate > 60; Glucose 113 mg/dL (75-110); Potassium 3.8 mmol/L (3.4-5.0); Sodium 138 mmol/L (137-145)
[2019-08-28 07:01] LABS: Creatine Kinase 5537 U/L (55-170)
[2019-08-28 07:53] LABS: Glucose Point of Care 108 (65-105)
[2019-08-28] MEDS: SODIUM CHLORIDE 0.9% IV 500 ML 10 ML IV CONT (08:11)
--- NOTE | 2019-08-28 08:12 | WPDANESEPPF ---
Anes - Initial Pre Proc Eval Procedure: Operation Date: 08/28/19 09:00 Proposed Procedures p Esophagogastroduodenoscopy - Shyam Torres MD s Percutaneous Endoscopic Gastrostomy Placement - Shaym Torres MD Date/Time: 08/28/19 08:12 Surgeon: Tomas Pre Op Diagnosis: Hypernatremia, dehydration, possible sepsis Patient Data Age: 79 Gender: M Height: 5 ft 6 in Weight: 67.2 kg Last Vital Signs Temp 97.8 F 08/28/19 07:53 Pulse 79 08/28/19 07:53 Resp 16 08/28/19 07:53 BP 97/57 L 08/28/19 07:53 Pulse Ox 98 08/28/19 07:53 Allergies Allergy/AdvReac Type Severity Reaction Status Date / Time aspirin Allergy Unknown Verified 08/21/19 15:18 latex Allergy Unknown Verified 08/21/19 15:19 Home Medications Medication Instructions Recorded Confirmed Type acetaminophen 650 mg PO TID PRN 08/21/19 08/21/19 History apixaban [Eliquis] 5 mg PO BID 08/21/19 08/21/19 History atorvastatin 40 mg PO DAILY 08/21/19 08/21/19 History bisacodyl 10 mg PO HS 08/21/19 08/21/19 History bisacodyl 10 mg AL DAILY PRN 08/21/19 08/21/19 History clopidogrel 75 mg PO DAILY 08/21/19 08/21/19 History hydroxyzine HCl 25 mg PO TID PRN 08/21/19 08/21/19 History latanoprost 1 drp OPHTHALMIC (EYE) HS 08/21/19 08/21/19 History nystatin 5 ml PO QID 08/21/19 08/21/19 History oseltamivir 75 mg PO DAILY 08/21/19 08/21/19 History oxycodone 5 mg PO Q6H PRN 08/21/19 08/21/19 History polyethylene glycol 3350 [Miralax] 17 g PO DAILY 08/21/19 08/21/19 History sennosides-docusate sodium [Senna 2 tablet PO BID 08/21/19 08/21/19 History with Docusate Sodium] thiamine HCl (vitamin B1) 100 mg PO DAILY 08/21/19 08/21/19 History trazodone 50 mg PO HS 08/21/19 08/21/19 History Laboratory Tests 08/27/19 08/27/19 08/27/19 09:03 09:03 09:03 WBC 11.8 K/mm3 H K/mm3 (4.5-10.0) RBC 4.44 M/mm3 L M/mm3 (4.6-6.20) Hgb 14.7 g/dL g/dL (14.0-18.0) Hct 46.1 % % (42.0-52.0) MCV 103.8 fl H fl (80-100) MCH 33.1 pg pg (26-34) MCHC 31.9 g/dl L g/dl (32-36) RDW 13.9 % % (11.5-14.5) Plt Count 101 k/mm3 L k/mm3 (150-375) MPV 13.0 fl H fl (7.4-10.4) Immature Gran % (Auto) 0.8 % H % (0-0.5) Neut % (Auto) 83.7 % H % (45.5-73.1) Lymph % (Auto) 9.0 % L % (18.3-44.2) [place] % (Auto) 5.1 % % (2.6-8.5) Eos % (Auto) 1.2 % % (0-4.4) Baso % (Auto) 0.2 % % (0.2-1.2) Lymph # (Auto) 1.07 K/mm3 K/mm3 (0.9-3.2) [place] # (Auto) 0.6 K/mm3 K/mm3 (0.1-0.6) Eos # (Auto) 0.1 K/mm3 K/mm3 (0-0.3) Baso # (Auto) 0.0 K/mm3 K/mm3 (0.0-0.1) Abs Immat Gran (auto) 0.10 K/mm3 H K/mm3 (0.00-0.031) Absolute Neuts (auto) 9.9 K/mm3 H K/mm3 (1.3-6.7) Absolute Nucleated RBC 0.0 K/mm3 K/mm3 (0.0-0.012) Nucleated RBC % 0.0 % % (0.0-0.2) PT 20.0 Seconds H Seconds (11.1-14.7) INR 1.8 Sodium 141 mmol/L mmol/L (137-145) Potassium 4.2 mmol/L mmol/L (3.4-5.0) Chloride 107 mmol/L mmol/L (98-107) Carbon Dioxide 27 mmol/L mmol/L (22-30) BUN 30 mg/dL H D mg/dL (9-20) Creatinine 1.20 mg/dL mg/dL (0.7-1.3) Estim Creat Clear Calc 40 ml/min ml/min Estimated GFR 58 L (59 - ) Glucose 120 mg/dL H mg/dL (75-110) POC Capillary Glucose Calcium 7.8 mg/dL L mg/dL (8.4-10.2) Total Bilirubin 0.7 mg/dL mg/dL (0.2-1.3) AST 524 U/L H U/L (17-59) ALT 275 U/L H U/L (4-50) Alkaline Phosphatase 133 U/L H U/L (38-126) Total Creatine Kinase 5879 U/L H U/L (55-170) Total Protein 6.0 g/dL L g/dL (6.3-8.2) Albumin 3.1 g/dL L g/dL (3.5-5.1) 08/27/19 08/27/19 08/27/19 12:33 15:48 16:36 WBC
--- NOTE | 2019-08-28 08:34 | WPDANESEFPP ---
Anes - Eval Final PreProcedure Day of Procedure 08/28/19 08:34 Patient weight: normal Heart: regular rate and rhythm Lungs: clear to auscultation Airway: Mallampati scale class III Neurological: unresponsive Last oral intake: >/= 8 hours ASA classification: IV Emergent: no Anesthetic plan: proceed Anesthesia type and monitoring: general GIVS and standard monitoring Informed Consent: The patient's anesthetic plan and its attendant risks and benefits were discussed with the patient/family/POA. Questions were solicited and answers provided to the satisfaction of the patient/family/POA.
--- NOTE | 2019-08-28 08:40 | PCOTNOTE ---
Attempted to see patient for Occupational Therapy but patient gone for procedure. Will attempt later if time permits.
[2019-08-28 09:31] LABS: Glucose Point of Care 88 (65-105)
--- NOTE | 2019-08-28 11:07 | PCNFU ---
Nutrition Follow-Up Complete: Inadequate oral intake r/t dysphagia and AMS as evidence by Hx of CVA, per RN, NPO status. Initiate diet when medically appropriate. Goal:Progressing towards goal. Pt current nutrition is Jevity 1.2 at 30 ml/hr . Nutrition recommendation: Agree Last recorded weight is 67.2 kg. Bowel Motility:NO BM reported Labs Reviewed:Glu 113, BUN 22,Na 141 Meds Noted:Thiamine Additional Notes: Patient had PEG tube placed. Plans to start tube feedings today of Jevity 1.2 at 30 ml/hr advancing by 10 ml/hr q 4 hours to goal rate of 70 ml/hr. Enteral Nutrition will be providing 1848 kcals and 85 gms protein. Meeting 100% of patients caloric needs. Diet advancement, weight, labs Will monitor every Wednesday and Wednesday.
[2019-08-28] MEDS: NYSTATIN 100,000 UNITS/ML SUSP 5 ML ORAL.SUSP PO ×4 (12:12→22:07)
[2019-08-28] MEDS: THIAMINE HCL 200 MG/2 ML VIAL 100 MG IV PUSH (12:13)
--- NOTE | 2019-08-28 12:45 | P.PNIM_ITS ---
Progress Note: A&P Assessment and Plan (1) Metabolic encephalopathy: Code(s): G93.41 - Metabolic encephalopathy Status: Acute Assessment and Plan: * Secondary to acute kidney injury, electrolyte abnormalities, and profound uremia. slowly improving * Infection in initial differential but cultures blood and urine continue negative so antibiotics d/mauricio . * Patient is NPO. discussed with 08/23 regarding possible G-tube placement and she wants to proceed . * peg placed today 08/27 and feedings to start Jevity 1.2 (2) Dehydration: Code(s): E86.0 - Dehydration Status: Acute Assessment and Plan: * Patient was profoundly dehydrated but now Na 138, Bun 22 and creatinine 0.9, all improved. * Also was significantly hemoconcentrated but hgb now normal. * He was receiving aggressive IV fluid rehydration with close monitoring of his electrolytes and renal function. * And change to D5W , 08/21 pm with persistant hypernatremia and hyperchhoremia, covered with thiamine (3) Lactic acidosis: Code(s): E87.2 - Acidosis Status: Acute Assessment and Plan: * Lactic acid was elevated due to hypoperfusion from significant hypovolemia. * blood cultures and urine cultures negative * He recieved 30 milligrams/kilogram IV fluid rehydration, and repeat lactic acid normal (4) Hypotension: Code(s): I95.9 - Hypotension, unspecified Status: Acute Assessment and Plan: * due to profound dehydration. * Blood pressures have improved with IV fluids.. (5) Hypernatremia: Code(s): E87.0 - Hyperosmolality and hypernatremia Status: Acute Assessment and Plan: * Profound hypernatremia with a sodium of 168 on arrival to the emergency depa rtment. * He received IV fluid boluses for lactic acidosis and sodium slowly falling. * Sodium level will be monitored to ensure it is correcting at an appropriate level.and rate * Na 138 today after converted to D5W hydration 08/21 pm (6) Transaminasemia: Code(s): R74.0 - Nonspecific elevation of levels of transaminase and lactic acid dehydrogenase [LDH] Status: Acute Assessment and Plan: * probably due to hypoperfusion, serology negative and sludge and stones on US * Hepatitis panel negative and CK levels decreased.but still at 5879 Follow both * Right upper quadrant ultrasound sludge and stones but no evidence of acute cholecystitis * Continue to monitor closely. (7) Acute kidney injury: Code(s): N17.9 - Acute kidney failure, unspecified Status: Acute Assessment and Plan: * Most likely due to profound dehydration. * As above, he is receiving aggressive IV fluid rehydration. * Carver catheter in place to monitor strict I/O. * Avoid nephrotoxic agents. * Renal ultrasound no hydro * CK elevated too.but continues to fall, 5537 today (8) Secondary polycythemia: Code(s): D75.1 - Secondary polycythemia Status: Acute Assessment and Plan: * This diagnosis was documented on paperwork that accompanied him from [facility], and I have no further
--- NOTE | 2019-08-28 12:45 | PM.IMPN ---
Progress Note: A&P Assessment and Plan (1) Metabolic encephalopathy: Code(s): G93.41 - Metabolic encephalopathy Status: Acute Assessment and Plan: Secondary to acute kidney injury, electrolyte abnormalities, and profound uremia. slowly improving Infection in initial differential but cultures blood and urine continue negative so antibiotics d/mauricio . Patient is NPO. discussed with 08/23 regarding possible G-tube placement and she wants to proceed . peg placed today 08/27 and feedings to start Jevity 1.2 (2) Dehydration: Code(s): E86.0 - Dehydration Status: Acute Assessment and Plan: Patient was profoundly dehydrated but now Na 138, Bun 22 and creatinine 0.9, all improved. Also was significantly hemoconcentrated but hgb now normal. He was receiving aggressive IV fluid rehydration with close monitoring of his electrolytes and renal function. And change to D5W , 08/21 pm with persistant hypernatremia and hyperchhoremia, covered with thiamine (3) Lactic acidosis: Code(s): E87.2 - Acidosis Status: Acute Assessment and Plan: Lactic acid was elevated due to hypoperfusion from significant hypovolemia. blood cultures and urine cultures negative He recieved 30 milligrams/kilogram IV fluid rehydration, and repeat lactic acid normal (4) Hypotension: Code(s): I95.9 - Hypotension, unspecified Status: Acute Assessment and Plan: due to profound dehydration. Blood pressures have improved with IV fluids.. (5) Hypernatremia: Code(s): E87.0 - Hyperosmolality and hypernatremia Status: Acute Assessment and Plan: Profound hypernatremia with a sodium of 168 on arrival to the emergency department. He received IV fluid boluses for lactic acidosis and sodium slowly falling. Sodium level will be monitored to ensure it is correcting at an appropriate level.and rate Na 138 today after converted to D5W hydration 08/21 pm (6) Transaminasemia: Code(s): R74.0 - Nonspecific elevation of levels of transaminase and lactic acid dehydrogenase [LDH] Status: Acute Assessment and Plan: probably due to hypoperfusion, serology negative and sludge and stones on US Hepatitis panel negative and CK levels decreased.but still at 5879 Follow both Right upper quadrant ultrasound sludge and stones but no evidence of acute cholecystitis Continue to monitor closely. (7) Acute kidney injury: Code(s): N17.9 - Acute kidney failure, unspecified Status: Acute Assessment and Plan: Most likely due to profound dehydration. As above, he is receiving aggressive IV fluid rehydration. Carver catheter in place to monitor strict I/O. Avoid nephrotoxic agents. Renal ultrasound no hydro CK elevated too.but continues to fall, 5537 today (8) Secondary polycythemia: Code(s): D75.1 - Secondary polycythemia Status: Acute Assessment and Plan: This diagnosis was documented on paperwork that accompanied him from [facility], and I have no further information. Was significantly hemoconcentrated with hemoglobin and hematocrit as above on admission Will monitor closely while hydrating, Has fallen slowly and platelet 121K today (9) Coagulopathy: Code(s): D68.9 - Coagulation defect, unspecified Status: Acute Assessment and Plan: He was on apixaban, which is being held. INR. 1.3 today still (10) Recent cerebrovascular accident (CVA): Code(s): Z86.73 - Personal history of [place]
[2019-08-28] MEDS: DEXTROSE 5%/0.45% SOD CHL 1,000 ML 75 ML IV CONT (17:12)
[2019-08-28 17:28] LABS: Glucose Point of Care 94 (65-105)
--- NOTE | 2019-08-28 19:49 | PC.NURSE ---
Returned from GI Lab. PEG TUBE TAPED TO ABDOMEN NO DRESSING NOTED ABDOMINAL BINDER IN PLACE
--- NOTE | 2019-08-28 20:00 | PC.NURSE ---
1600 STARTED JEVITY 1.2 AT 30 CC/HR AND 50 CC WATER BOLUS Q4 HR 1999 WILL BE THE NEXT TIME TO INCREASE TUBE FEEDING RATE BY 10CC.
[2019-08-28] MEDS: LATANOPROST 0.005% OP SOLN 2.5 ML BTL 1 DROP EACH EYE (22:07)
[2019-08-29 00:36] LABS: Glucose Point of Care 132 (65-105)
[2019-08-29 06:00] VITALS: BP 97/59; PULSE 89; RESP 16; TEMP 37; O2SAT 100
[2019-08-29] MEDS: DEXTROSE 5%/0.45% SOD CHL 1,000 ML 75 ML IV CONT (06:48)
[2019-08-29 08:57] LABS: Hematocrit 48.2 % (42.0-52.0); Hemoglobin 15.4 g/dL (14.0-18.0); Mean Corpuscular Hemoglobin 33.3 pg (26-34); Mean Corpuscular Volume 104.1 fl (80-100); Mean Platelet Volume 12.6 fl (7.4-10.4); Platelet Count Result 107 k/mm3 (150-375); Red Blood Count 4.63 M/mm3 (4.6-6.20); Red Cell Distribution Width 14.2 % (11.5-14.5); White Blood Count 7.5 K/mm3 (4.5-10.0)
[2019-08-29] MEDS: CLOPIDOGREL BISULFATE 75 MG TABLET FEED TUBE (08:57)
[2019-08-29] MEDS: NYSTATIN 100,000 UNITS/ML SUSP 5 ML ORAL.SUSP PO ×2 (08:57→12:15)
[2019-08-29] MEDS: THIAMINE HCL 100 MG TABLET FEED TUBE (08:57)
[2019-08-29 09:07] LABS: INR 1.1; Prothrombin Time 13.7 Seconds (11.1-14.7)
[2019-08-29 10:37] LABS: Potassium 3.3 mmol/L (3.4-5.0)
[2019-08-29 10:44] LABS: Blood Urea Nitrogen 21 mg/dL (9-20); Calcium 8.1 mg/dL (8.4-10.2); Carbon Dioxide 22 mmol/L (22-30); Chloride 109 mmol/L (98-107); Estimated CRCL calculation 53 ml/min; Estimated Glomerular Filt Rate > 60; Glucose 157 mg/dL (75-110); Sodium 140 mmol/L (137-145)
--- NOTE | 2019-08-29 10:57 | WPDGIPROGNO ---
Progress Note: A&P Assessment and Plan (1) Dysphagia: Qualifiers: Dysphagia type: unspecified Qualified Code(s): R13.10 - Dysphagia, unspecified Code(s): R13.10 - Dysphagia, unspecified Status: Acute Assessment and Plan: successful placement of G-tube yesterday, tolerating feeding. (2) Aphasia: Code(s): R47.01 - Aphasia Status: Acute (3) Erosive gastritis: Code(s): K29.60 - Other gastritis without bleeding Status: Acute Assessment and Plan: I obtained stomach biopsies, ppi daily (4) Recent cerebrovascular accident (CVA): Code(s): Z86.73 - Personal history of transient ischemic attack (TIA), and cerebral infarction without residual deficits Status: Acute Assessment and Plan: medical treatment, will require [employer] therapy/placement (5) Dehydration: Code(s): E86.0 - Dehydration Status: Acute Assessment and Plan: resolved, normal renal function now. (6) Gastrostomy tube in place: Code(s): Z93.1 - Gastrostomy status Status: Acute Assessment and Plan: working ok Subjective Date/time seen: 08/29/19 10:57 Interval history: he is tolerating TF at 70 ml/h, no new events Review of Systems Review of Systems: ROS unobtainable: Yes unobtainable due to mental status Exam Const: Other: ill-appearing elderly gentleman. He will open his eyes but does not follow commands or answer questions. No changes HENMT: General nose exam: Normal nares present Eyes: Other: previous cataract surgery Neck: Neck: no JVD Resp: Auscultation: clear to auscultation bilaterally Cardio: Rate: regular rate Rhythm: regular rhythm GI: Inspection: non-distended GI Palp: Yes Soft to palpation, No Tenderness to palpation present (GI) and Yes Other GI palpation findings present (g-tube in place, looks ok) Auscultation: normal bowel sounds Urinary Catheter: Urinary Catheter: patent and draining Skin: General skin exam: normal color Neuro: Other: right hemiplejia, aphasia, non-verbal Extrem: General: normal to inspection Psych: Other: non-verbal Objective Data Vital Signs Vital Signs: Vital Signs - 24 hr 08/28/19 14:00 08/28/19 22:00 03/31/20 06:00 Temperature 98.8 F 97.0 F L 98.6 F Pulse Rate 90 95 89 Respiratory Rate 16 16 16 Blood Pressure 99/52 L 106/63 97/59 L Pulse Oximetry 99 100 100 Intake/Output Intake/Output: Intake & Output 08/26/19 08/27/19 08/28/19 08/29/19 23:59 23:59 23:59 23:59 Intake Total 1999 1000 2060 1000 Output Total 3171 223 9290 225 Balance 875 400 35 775 Meds/Results Medications: Active Medications Generic Name Dose Route Start Last Admin Trade Name Freq PRN Reason Stop Dose Admin Acetaminophen 650 mg 08/21/19 16:39 Tylenol Tablet PO Q4H PRN Mild Pain (1-3) or Fever Clopidogrel Bisulfate 75 mg 08/29/19 09:00 08/29/19 08:57 Plavix FEED TUBE 75 mg QAM MARIN Administration Dextrose/Sodium Chloride 1,000 mls @ 75 mls/hr 08/28/19 13:00 08/29/19 06:48 Dextrose 5% Sodium Chloride 0.45% IV CONT 75 mls/hr .[id number] MARIN Administration Latanoprost 1 drop 08/21/19 21:00 08/28/19 22:07 Xalatan EACH EYE 1 drop HS MARIN Administration Nystatin 5 ml 08/21/19 21:00 08/29/19 08:57 Nystatin 100,000 Units/Ml Susp PO 5 ml QID MARIN Administration Thiamine HCl 100 mg 08/29/19 09:00 08/29/19 08:57 Vitamin B-1 FEED TUBE 100 mg QAM MARIN Administration Radiology Results: ITS Impressions Head CT 08/21/19 16:07 IMPRESSION: 1. Multiple old infarcts in the brain. 2. Moderate nonspecific cerebral white matter disease and disease of the deep james nuclei, which likely represents chronic small vessel ischemic disease. Chest X-Ray 08/21/19 16:35 IMPRESSION: 1. Mild scarring at the lung apices. Renal Ultrasound 08/22/19 13:20 IMPRESSION: 1. Normal kidneys without hydronephrosis.
[2019-08-29 11:11] LABS: Creatine Kinase 2375 U/L (55-170)
[2019-08-29] MEDS: POTASSIUM CHLORIDE 20 MEQ PACKET (FOR LIQUID) 40 MEQ FEED TUBE (12:15)
[2019-08-29 12:27] LABS: Glucose Point of Care 114 (65-105)
--- NOTE | 2019-08-29 13:04 | P.DS_ITS ---
DS: Diagnosis Admitting Diagnosis Admitting Diagnosis: Acute kidney failure, unspecified Discharge Diagnosis (1) Metabolic encephalopathy: Code(s): G93.41 - Metabolic encephalopathy Status: Acute Assessment and Plan: * Secondary to acute kidney injury, electrolyte abnormalities, and profound uremia. slowly improving * Infection in initial differential but cultures blood and urine continue negative so antibiotics d/mauricio . * Patient is NPO. Dr. Tinoco discussed with 08/23 regarding possible G- tube placement and she wished to proceed . * PEG placed today 08/27 and feedings started with Jevity 1.2 (2) Dehydration: Code(s): E86.0 - Dehydration Status: Acute Assessment and Plan: * Patient was profoundly dehydrated but now improved. * Also was significantly hemoconcentrated but hgb now normal. * He was receiving aggressive IV fluid rehydration with close monitoring of his electrolytes and renal function. (3) Lactic acidosis: Code(s): E87.2 - Acidosis Status: Acute Assessment and Plan: * Lactic acid was elevated due to hypoperfusion from significant hypovolemia. * blood cultures and urine cultures negative * He recieved 30 milligrams/kilogram IV fluid rehydration, and repeat lactic acid normal (4) Hypotension: Code(s): I95.9 - Hypotension, unspecified Status: Acute Assessment and Plan: * Due to profound dehydration. * Blood pressures have improved with IV fluids.. (5) Hypernatremia: Code(s): E87.0 - Hyperosmolality and hypernatremia Status: Acute Assessment and Plan: * Profound hypernatremia with a sodium of 168 on arrival to the emergency department. * He received IV fluid boluses for lactic acidosis and sodium slowly falling. * Sodium level will be monitored to ensure it is correcting at an appropriate level.and rate * Na 140 today after converted to D5W hydration 08/21 pm * K 3.3 today and supplemented via PEG (6) Transaminasemia: Code(s): R74.0 - Nonspecific elevation of levels of transaminase and lactic acid dehydrogenase [LDH] Status: Acute Assessment and Plan: * probably due to hypoperfusion, serology negative and sludge and stones on US * Hepatitis panel negative and CK levels decreasing Follow both in 2 days * Right upper quadrant ultrasound sludge and stones but no evidence of acute cholecystitis (7) Acute kidney injury: Code(s): N17.9 - Acute kidney failure, unspecified Status: Acute Assessment and Plan: * Most likely due to profound dehydration. * As above, he is receiving aggressive IV fluid rehydration. * Carver catheter in place to monitor strict I/O. * Avoid nephrotoxic agents. * Renal ultrasound no hydro * CK elevated too.but continues to fall, 2375 (8) Secondary polycythemia: Code(s): D75.1 - Secondary polycythemia Status: Acute Assessment and Plan: * This diagnosis was documented on paperwork that accompanied him from [facility] * Was significantly hemoconcentrated with hemoglobin and hematocrit as above o
--- NOTE | 2019-08-29 13:04 | PM.DS ---
DS: Diagnosis Admitting Diagnosis Admitting Diagnosis: Acute kidney failure, unspecified Discharge Diagnosis (1) Metabolic encephalopathy: Code(s): G93.41 - Metabolic encephalopathy Status: Acute Assessment and Plan: Secondary to acute kidney injury, electrolyte abnormalities, and profound uremia. slowly improving Infection in initial differential but cultures blood and urine continue negative so antibiotics d/mauricio . Patient is NPO. Dr. Tinoco discussed with 08/23 regarding possible G-tube placement and she wished to proceed . PEG placed today 08/27 and feedings started with Jevity 1.2 (2) Dehydration: Code(s): E86.0 - Dehydration Status: Acute Assessment and Plan: Patient was profoundly dehydrated but now improved. Also was significantly hemoconcentrated but hgb now normal. He was receiving aggressive IV fluid rehydration with close monitoring of his electrolytes and renal function. (3) Lactic acidosis: Code(s): E87.2 - Acidosis Status: Acute Assessment and Plan: Lactic acid was elevated due to hypoperfusion from significant hypovolemia. blood cultures and urine cultures negative He recieved 30 milligrams/kilogram IV fluid rehydration, and repeat lactic acid normal (4) Hypotension: Code(s): I95.9 - Hypotension, unspecified Status: Acute Assessment and Plan: Due to profound dehydration. Blood pressures have improved with IV fluids.. (5) Hypernatremia: Code(s): E87.0 - Hyperosmolality and hypernatremia Status: Acute Assessment and Plan: Profound hypernatremia with a sodium of 168 on arrival to the emergency department. He received IV fluid boluses for lactic acidosis and sodium slowly falling. Sodium level will be monitored to ensure it is correcting at an appropriate level.and rate Na 140 today after converted to D5W hydration 08/21 pm K 3.3 today and supplemented via PEG (6) Transaminasemia: Code(s): R74.0 - Nonspecific elevation of levels of transaminase and lactic acid dehydrogenase [LDH] Status: Acute Assessment and Plan: probably due to hypoperfusion, serology negative and sludge and stones on US Hepatitis panel negative and CK levels decreasing Follow both in 2 days Right upper quadrant ultrasound sludge and stones but no evidence of acute cholecystitis (7) Acute kidney injury: Code(s): N17.9 - Acute kidney failure, unspecified Status: Acute Assessment and Plan: Most likely due to profound dehydration. As above, he is receiving aggressive IV fluid rehydration. Carver catheter in place to monitor strict I/O. Avoid nephrotoxic agents. Renal ultrasound no hydro CK elevated too.but continues to fall, 2375 (8) Secondary polycythemia: Code(s): D75.1 - Secondary polycythemia Status: Acute Assessment and Plan: This diagnosis was documented on paperwork that accompanied him from [place] Was significantly hemoconcentrated with hemoglobin and hematocrit as above on admission Will monitor closely while hydrating, Has fallen slowly and platelet 107K today (9) Coagulopathy: Code(s): D68.9 - Coagulation defect, unspecified Status: Acute Assessment and Plan: He was on apixaban, which is being held. INR. 1.1 today (10) Recent cerebrovascular accident (CVA): Code(s): Z86.73 - Personal history of transient ischemic attack (TIA), and cerebral infarction without residual deficits Status: Acut
--- NOTE | 2019-08-29 13:32 | PCNFU ---
Nutrition Follow-Up Complete: Inadequate oral intake r/t dysphasia and AMS as evidence by Hx of CVA, per RN, NPO status. Goal: Initiate diet when medically appropriate. goal has been met. Pt current nutrition is Jevity 1.2 at 70 ml/hr. Nutrition recommendation: Agree Last recorded weight is 68 kg. Bowel Motility:+BM 08/26 Labs Reviewed:Glu 157,BUN 21,K 3.3 Meds Noted:Thiamine, Plavix Additional Notes:Patient started PEG tube feedings of Jevity 1.2 yesterday, currently at goal rate of 70 ml/hr and tolerating per nursing. Current tube feedings are providing patient with 1848 kcals/85 gm s protein. Free water flush 50 ml q 4 hours. Monitoring: labs, weight, tube feedings tolerance every Wednesday and Wednesday.
[2019-08-29 14:00] VITALS: BP 105/57; PULSE 86; RESP 18; TEMP 36.8; O2SAT 99
== END 2019-08-29 15:42 | DRG 682 ==
LOC: ANHED 16:46 → ANHIMU 18:03 → ANH3MEDSUR 08-28 07:13 → ANHIMU 08-30 13:54
PROVIDERS: Internal Medicine; Internal Medicine Gastroenterology; Physician Assistant; Admitting Provider Internal Medicine; Emergency Provider Emergency Medicine; PCP Family Medicine; Visit Provider Internal Medicine
PROC: 0DJ08ZZ Inspection of Upper Intestinal Tract, Via Natural or Artificial Opening Endoscopic (ICD-10-PCS; CPT 43235; principal; 2019-08-28 09:00)
PROC: 0DH63UZ Insertion of Feeding Device into Stomach, Percutaneous Approach (ICD-10-PCS; CPT 43246; 2019-08-28 09:00)
DX: N17.9 Acute kidney failure, unspecified (principal); G93.41 Metabolic encephalopathy; I69.351 Hemiplegia and hemiparesis following cerebral infarction affecting right dominant side; E87.2 Acidosis; E87.0 Hyperosmolality and hypernatremia; M62.82 Rhabdomyolysis; I69.320 Aphasia following cerebral infarction; I69.391 Dysphagia following cerebral infarction; R13.10 Dysphagia, unspecified; E86.0 Dehydration; F31.9 Bipolar disorder, unspecified; G60.9 Hereditary and idiopathic neuropathy, unspecified; I10 Essential (primary) hypertension; G47.00 Insomnia, unspecified; F43.10 Post-traumatic stress disorder, unspecified; Z98.49 Cataract extraction status, unspecified eye; Z96.1 Presence of intraocular lens; Z87.891 Personal history of nicotine dependence; D75.1 Secondary polycythemia; Z79.01 Long term (current) use of anticoagulants; K29.70 Gastritis, unspecified, without bleeding
CPT/HCPCS: 36415; 36600; 43246; 70450; 71045; 76705; 76775; 80048; 80053; 80069; 80074; 81001; 82375; 82550; 82607; 82746; 82805; 82948; 83050; 83605; 83735; 84100; 84295; 84443; 85014; 85018; 85025; 85027; 85055; 85610; 85730; 87040; 87081; 87086; 88305; 93005; 96361; 96374; 97110; 97162; 97165; 97530; 99291; A9270; J0690; J0696; J2001; J2704; J3411; J7030; J7040; J7070; J7120